=== PATIENT | male | born 1955 | race Caucasian/White ===

== ENCOUNTER 2020-08-08 13:10 | Outpatient (REF) | payer OTHER, SELFPAY ==
[2020-08-08 14:13] LABS: MANUAL DIFF FLAG NO
[2020-08-08 14:16] LABS: Glucose Urine UA NEG (NEG); Leukocyte Esterase Urine NEG (NEG); Nitrite Urine NEG (NEG); PH 5.5 (5.0-8.0); Specific Gravity - Urine >= 1.030 (1.005-1.025); Urine Blood NEG (NEG); Urine Ketones NEG (NEG); Urine Protein NEG (NEG-TRACE)
[2020-08-08 14:17] LABS: Appearance Urine CLEAR; Color Urine DARK YELLOW
[2020-08-08 14:19] LABS: Basophils Percent Auto 0.4 % (0-2); Eosinophils Absolute Auto 0.2 X10*3/uL (0.0-0.4); Eosinophils Percent Auto 2.7 % (0-4); Hemoglobin 15.5 g/dl (14.0-18.0); Imm Gran Pct Auto 1.4 % (0.0-0.4); Lymphocytes Absolute Auto 1.8 X10*3/uL (1.2-4.9); Lymphocytes Percent Auto 25.7 % (20-40); Mean Corpuscular Hemoglobin 30.2 pg (27.0-33.0); Mean Corpuscular Volume 91.6 fL (80-98); Monocytes Absolute Auto 0.7 X10*3/uL (0.1-1.2); Monocytes Percent Auto 9.9 % (2-11); Neutrophils Absolute Auto 4.2 X10*3/uL (2.0-8.3); Neutrophils Percent Auto 59.9 % (45-73); Platelet Count 217 X10*3/uL (160-400); Red Blood Count 5.13 X10*6/uL (4.60-5.80); Red Cell Distribution Width 13.8 % (11.0-16.0)
[2020-08-08 14:39] LABS: Alanine Aminotransferase 49 U/L (0-40); Albumin Level 4.3 g/dL (3.5-5.0); Alkaline Phosphatase 95 U/L (39-117); Anion Gap 13 (12-20); Aspartate Amino Transferase 20 U/L (5-37); Bilirubin Total 1.1 mg/dL (0.0-1.0); Blood Urea Nitrogen 18 mg/dL (9-16); Calcium 9.1 mg/dL (8.4-10.2); Carbon Dioxide 24 mmol/L (22-29); Chloride 107 mmol/L (96-108); Cholesterol 273 mg/dL; Estimated Glomerular Filt Rate > 60; Glucose Fasting 101 mg/dL (60-99); HDL Cholesterol 62 mg/dL; LDL Cholesterol Calculated 185 mg/dl; Potassium 4.1 mmol/L (3.3-5.1); Sodium 140 mmol/L (135-145); Total Protein 6.8 g/dL (6.5-8.0); Triglycerides 134 mg/dL
[2020-08-08 15:02] LABS: Prostate Specific Antigen Scr 4.31 ng/mL (<0.05-4.0)
== END 2020-08-08 13:11 | disposition home or self-care (01) ==
LOC: HO.LAB 13:10
PROVIDERS: PCP Internal Medicine; Visit Provider Internal Medicine
DX: Z12.5 Encounter for screening for malignant neoplasm of prostate (principal); K21.9 Gastro-esophageal reflux disease without esophagitis; E78.00 Pure hypercholesterolemia, unspecified; J44.9 Chronic obstructive pulmonary disease, unspecified; R63.5 Abnormal weight gain; Z87.891 Personal history of nicotine dependence
CPT/HCPCS: 36415; 80053; 80061; 81003; 84153; 85025

== ENCOUNTER 2020-09-03 15:32 | Outpatient (REF) | payer OTHER, SELFPAY ==
--- NOTE | ~2020-09-03 | CT_ITS ---
EXAMINATION: CT CHEST SCREENING CLINICAL INFORMATION: Nicotine dependence. COMPARISON: None. TECHNIQUE: Multidetector volumetric CT imaging of the chest is performed without contrast using low dose technique. Additional 2-D coronal and sagittal reformatted images and axial 3-D maximum intensity projection (MIP) images are generated on the CT workstation. This CT examination was performed using dose optimization techniques as appropriate, variously including the following: *Automated exposure control *Adjustment of mA and/or kV according to patient size (this includes techniques or standardized protocols for targeted exams where dose is matched to indication/reason for exam; i.e. extremities or head) *Use of iterative reconstruction technique DLP: 62 mGy-cm FINDINGS: LUNGS: The lungs are well expanded with thick parenchymal scarring visualized in left lower lobe and plate-like atelectasis right upper and right lower lobe. There are no pulmonary nodules, mass or consolidation. MEDIASTINUM: There are small shotty lymph nodes in the mediastinum. The thyroid lobes are symmetrical. The central trachea and the bronchi are widely patent. There are coronary artery calcifications. The heart size and the great vessels are normal caliber. No pericardial effusion seen. PLEURA: There is no pleural effusion. No pleural mass or thickening. AXILLA: No abnormal axillary lymph nodes seen. The chest wall is unremarkable. UPPER ABDOMEN: Visualized liver, spleen, pancreas and bilateral adrenal glands are unremarkable. OSSEOUS STRUCTURES: No lytic or sclerotic process seen. CT/CT lung screening IMPRESSION: No pulmonary nodule or mass. Thick parenchymal scarring bilateral lungs, as described above. No abnormal mediastinal or axillary lymphadenopathy. ASSESSMENT: Lung-RADS category 2, benign RECOMMENDATION: Low dose annual CT chest
== END 2020-09-03 15:33 | disposition home or self-care (01) ==
LOC: HO.CT 15:32
PROVIDERS: PCP Internal Medicine; Visit Provider Physician Assistant Medical
DX: Z12.2 Encounter for screening for malignant neoplasm of respiratory organs (principal); Z87.891 Personal history of nicotine dependence
CPT/HCPCS: 71271

== ENCOUNTER 2020-09-10 14:36 | Outpatient (REF) | payer OTHER, SELFPAY ==
[2020-09-10 16:01] LABS: PSA,Total (Free>4and<10) 2.74 ng/mL (0.00-4.00)
== END 2020-09-10 14:37 | disposition home or self-care (01) ==
LOC: HO.LAB 14:36
PROVIDERS: PCP Internal Medicine; Visit Provider Internal Medicine
DX: Z12.5 Encounter for screening for malignant neoplasm of prostate (principal); R97.20 Elevated prostate specific antigen [PSA]
CPT/HCPCS: 36415; 84153

== ENCOUNTER → 2020-10-31 13:54 | Outpatient (BNVA) | payer OTHER, SELFPAY | PROVIDERS: PCP Internal Medicine; Visit Provider Urology | DX: N40.1 Benign prostatic hyperplasia with lower urinary tract symptoms (principal); R97.20 Elevated prostate specific antigen [PSA] | CPT/HCPCS: 99202 ==

== ENCOUNTER 2021-04-15 13:34 | Outpatient (REF) | payer MEDICAID, SELFPAY ==
[2021-04-15 13:51] LABS: MANUAL DIFF FLAG NO
[2021-04-15 14:13] LABS: Basophils Percent Auto 0.4 % (0-2); Eosinophils Absolute Auto 0.1 X10*3/uL (0.0-0.4); Hemoglobin 15.8 g/dl (14.0-18.0); Imm Gran Abs Auto 0.08 X10*3/uL (0.00-0.03); Imm Gran Pct Auto 1.1 % (0.0-0.4); Lymphocytes Absolute Auto 1.9 X10*3/uL (1.2-4.9); Lymphocytes Percent Auto 25.3 % (20-40); Mean Corpuscular HGB Conc 32.2 g/dl (31.0-36.0); Mean Corpuscular Hemoglobin 29.8 pg (27.0-33.0); Mean Corpuscular Volume 92.3 fL (80.0-98.0); Mean Platelet Volume 11.2 fL (9.4-12.4); Monocytes Absolute Auto 0.8 X10*3/uL (0.1-1.2); Monocytes Percent Auto 10.9 % (2-11); Neutrophils Absolute Auto 4.5 x10*3/uL (2.0-8.3); Neutrophils Percent Auto 61.3 % (45-73); Platelet Count 229 X10*3/uL (160-400); Red Blood Count 5.31 X10*6/uL (4.60-5.80); Red Cell Distribution Width 13.9 % (11.0-16.0); White Blood Count 7.4 X10*3/uL (4.8-10.8)
[2021-04-15 14:41] LABS: Alanine Aminotransferase 23 U/L (0-40); Albumin Level 4.2 g/dL (3.5-5.0); Alkaline Phosphatase 92 U/L (39-117); Anion Gap 10 (12-20); Aspartate Amino Transferase 13 U/L (5-37); Bilirubin Total 1.4 mg/dL (0.0-1.0); Blood Urea Nitrogen 15 mg/dL (9-16); Calcium 9.3 mg/dL (8.4-10.2); Carbon Dioxide 26 mmol/L (22-29); Chloride 109 mmol/L (96-108); Cholesterol 242 mg/dL; Estimated Glomerular Filt Rate > 60; Glucose Fasting 102 mg/dL (60-99); HDL Cholesterol 45 mg/dL; LDL Cholesterol Calculated 166 mg/dl; Potassium 4.4 mmol/L (3.3-5.1); Sodium 141 mmol/L (135-145); Total Protein 6.8 g/dL (6.5-8.0); Triglycerides 158 mg/dL
[2021-04-15 14:57] LABS: PSA,Total (Free>4and<10) 2.92 ng/mL (0.00-4.00)
== END 2021-04-15 13:35 | disposition home or self-care (01) ==
LOC: HO.LAB 13:34
PROVIDERS: Absent Provider Urology; PCP Internal Medicine; Visit Provider Internal Medicine
DX: Z12.5 Encounter for screening for malignant neoplasm of prostate (principal); N40.1 Benign prostatic hyperplasia with lower urinary tract symptoms; N13.8 Other obstructive and reflux uropathy; R97.20 Elevated prostate specific antigen [PSA]; E78.00 Pure hypercholesterolemia, unspecified; J44.9 Chronic obstructive pulmonary disease, unspecified
CPT/HCPCS: 36415; 80053; 80061; 84153; 85025

== ENCOUNTER → 2021-05-07 14:33 | Outpatient (BNVA) | payer MEDICAID, SELFPAY | PROVIDERS: PCP Family Medicine; Visit Provider Urology ==

== ENCOUNTER 2022-01-06 15:50 | Outpatient (REF) | payer MEDICAID, SELFPAY ==
[2022-01-06 16:51] LABS: Influenza A PCR NEGATIVE (Negative); Influenza B PCR NEGATIVE (Negative); Resp Syncy Virus RNA Qual PCR NEGATIVE (Negative); SARS COV2 PCR INHOUSE POSITIVE (Negative)
== END 2022-01-06 15:51 | disposition home or self-care (01) ==
LOC: HO.LNP 15:50
PROVIDERS: Visit Provider Internal Medicine
DX: R05.9 Cough, unspecified (principal); R50.9 Fever, unspecified; J02.9 Acute pharyngitis, unspecified; Z20.822 Contact with and (suspected) exposure to COVID-19
CPT/HCPCS: 0241U

== ENCOUNTER 2022-04-10 16:34 | Outpatient (REF) | payer MEDICAID, SELFPAY ==
[2022-04-10 16:50] LABS: MANUAL DIFF FLAG NO
[2022-04-10 17:20] LABS: Basophils Percent Auto 0.3 % (0-2); Eosinophils Absolute Auto 0.1 X10*3/uL (0.0-0.4); Eosinophils Percent Auto 0.7 % (0-4); Hematocrit 47.4 % (42.0-52.0); Hemoglobin 15.8 g/dl (14.0-18.0); Imm Gran Abs Auto 0.09 X10*3/uL (0.00-0.03); Lymphocytes Percent Auto 21.5 % (20-40); Mean Corpuscular HGB Conc 33.3 g/dl (31.0-36.0); Mean Corpuscular Hemoglobin 30.8 pg (27.0-33.0); Mean Corpuscular Volume 92.4 fL (80.0-98.0); Mean Platelet Volume 10.9 fL (9.4-12.4); Monocytes Absolute Auto 0.8 X10*3/uL (0.1-1.2); Neutrophils Absolute Auto 6.1 x10*3/uL (2.0-8.3); Neutrophils Percent Auto 67.5 % (45-73); Platelet Count 240 X10*3/uL (160-400); Red Blood Count 5.13 X10*6/uL (4.60-5.80); Red Cell Distribution Width 13.9 % (11.0-16.0); White Blood Count 9.1 X10*3/uL (4.8-10.8)
[2022-04-10 18:00] LABS: Alanine Aminotransferase 24 U/L (0-40); Albumin Level 4.3 g/dL (3.5-5.0); Alkaline Phosphatase 99 U/L (39-117); Anion Gap 13 (12-20); Aspartate Amino Transferase 14 U/L (5-37); Bilirubin Total 0.8 mg/dL (0.0-1.0); Blood Urea Nitrogen 22 mg/dL (9-16); Calcium 9.4 mg/dL (8.4-10.2); Carbon Dioxide 24 mmol/L (22-29); Chloride 107 mmol/L (96-108); Cholesterol 230 mg/dL; Estimated Glomerular Filt Rate > 60; Glucose Random 102 mg/dL (60-115); HDL Cholesterol 47 mg/dL; LDL Cholesterol Calculated 158 mg/dl; Potassium 4.2 mmol/L (3.3-5.1); Sodium 140 mmol/L (135-145); Total Protein 6.8 g/dL (6.5-8.0); Triglycerides 125 mg/dL
[2022-04-10 18:15] LABS: Prostate Specific Antigen 3.58 ng/mL (<0.05-4.0)
== END 2022-04-10 16:35 | disposition home or self-care (01) ==
LOC: HO.LAB 16:34
PROVIDERS: PCP Internal Medicine; Visit Provider Internal Medicine
DX: Z12.5 Encounter for screening for malignant neoplasm of prostate (principal); E78.00 Pure hypercholesterolemia, unspecified; J44.9 Chronic obstructive pulmonary disease, unspecified; M54.2 Cervicalgia
CPT/HCPCS: 36415; 80053; 80061; 84153; 85025

== ENCOUNTER 2022-04-27 14:21 | Outpatient (REF) | payer MEDICARE, MEDICAID, SELFPAY ==
--- NOTE | ~2022-04-27 | MR_ITS ---
EXAMINATION: MR BRAIN WITHOUT CONTRAST CLINICAL INFORMATION: Tinnitus. Rule out auditory nerve lesion. COMPARISON: Head CTA April 01, 2017. TECHNIQUE: Multiplanar, multisequence imaging of the brain was performed without intravenous contrast. FINDINGS: There is no acute infarction, mass, hemorrhage, or extra-axial collection. The ventricles, sulci, and basilar cisterns are normal in size and configuration. The brain parenchyma signal is essentially normal. No cerebellopontine angle lesion is seen. There is no abnormal nodularity along the internal auditory canals. The inner ear structures demonstrate normal and symmetric fluid signal. The flow voids of the major intracranial arteries appear intact. The bones and extracranial soft tissues are unremarkable. MR/MR head/brain wo con IMPRESSION: No acute infarct, mass lesion, intracranial hemorrhage, or evidence of hydrocephalus. No evidence of retrocochlear lesion.
== END 2022-04-27 14:22 | disposition home or self-care (01) ==
LOC: HO.MRI 14:21
PROVIDERS: Visit Provider Internal Medicine
DX: H93.11 Tinnitus, right ear (principal)
CPT/HCPCS: 70551

== ENCOUNTER 2022-11-03 17:05 | Outpatient (REF) | payer MEDICARE, MEDICAID, SELFPAY ==
--- NOTE | ~2022-11-03 | US_ITS ---
EXAMINATION: US VENOUS ULTRASOUND WITH DOPPLER LOWER EXTREMITY, BILATERAL CLINICAL INFORMATION: Reason long plane I, edema bilateral lower extremities COMPARISON: None available. TECHNIQUE: Ultrasound of the deep veins is performed from the hip to the calf with compression sonography and color and pulse Doppler assessment. Spectral analysis with color-flow imaging is performed. FINDINGS: RIGHT: There is normal venous compression and respiratory variation and augmented flow. The visualized common femoral vein, superficial femoral vein, profunda femoral vein, popliteal vein, and the trifurcation region shows no evidence of deep venous thrombosis. There is no significant popliteal fossa cyst. LEFT: There is normal venous compression and respiratory variation and augmented flow. The visualized common femoral vein, superficial femoral vein, profunda femoral vein, popliteal vein, and the trifurcation region shows no evidence of deep venous thrombosis. There is no significant popliteal fossa cyst. If the patient's symptoms persist, followup ultrasound in 5 days 7 days might be of value to exclude proximal propagation from a non-visualized calf vein. US/US venous duplex LE BI IMPRESSION: No DVT demonstrated in the bilateral lower extremities
[2022-11-03 17:14] LABS: MANUAL DIFF FLAG NO
[2022-11-03 17:52] LABS: Basophils Percent Auto 0.4 % (0-2); Eosinophils Absolute Auto 0.2 X10*3/uL (0.0-0.4); Eosinophils Percent Auto 2.2 % (0-4); Hematocrit 44.4 % (42.0-52.0); Hemoglobin 14.9 g/dl (14.0-18.0); Imm Gran Pct Auto 1.2 % (0.0-0.4); Lymphocytes Percent Auto 24.3 % (20-40); Mean Corpuscular HGB Conc 33.6 g/dl (31.0-36.0); Mean Corpuscular Hemoglobin 31.7 pg (27.0-33.0); Mean Corpuscular Volume 94.5 fL (80.0-98.0); Mean Platelet Volume 11.2 fL (9.4-12.4); Monocytes Absolute Auto 0.8 X10*3/uL (0.1-1.2); Monocytes Percent Auto 10.3 % (2-11); Neutrophils Absolute Auto 4.9 x10*3/uL (2.0-8.3); Neutrophils Percent Auto 61.6 % (45-73); Platelet Count 183 X10*3/uL (160-400); Red Cell Distribution Width 14.3 % (11.0-16.0)
[2022-11-03 18:34] LABS: Alanine Aminotransferase 29 U/L (0-40); Alkaline Phosphatase 83 U/L (39-117); Anion Gap 12 (12-20); Aspartate Amino Transferase 18 U/L (5-37); Bilirubin Total 1.1 mg/dL (0.0-1.0); Blood Urea Nitrogen 16 mg/dL (9-16); C Reactive Protein 0.59 mg/dL (< or = 0.50); Calcium 9.3 mg/dL (8.4-10.2); Carbon Dioxide 27 mmol/L (22-29); Chloride 106 mmol/L (96-108); Estimated Glomerular Filt Rate > 60; Glucose Random 96 mg/dL (60-115); Potassium 4.2 mmol/L (3.3-5.1); Sodium 141 mmol/L (135-145); Total Protein 6.6 g/dL (6.5-8.0)
[2022-11-03 18:50] LABS: Free T4 (Free Thyroxine) 0.94 ng/dL (0.71-1.85); Thyroid Stimulating Hormone 5.45 uIU/mL (0.32-4.0)
[2022-11-03 19:16] LABS: D Dimer High Sensitivity 256 NG/ML
== END 2022-11-03 17:06 | disposition home or self-care (01) ==
LOC: HO.US 17:05
PROVIDERS: PCP Internal Medicine; Visit Provider Internal Medicine
DX: I82.403 Acute embolism and thrombosis of unspecified deep veins of lower extremity, bilateral (principal); R60.0 Localized edema; K21.9 Gastro-esophageal reflux disease without esophagitis
CPT/HCPCS: 36415; 80053; 84439; 84443; 85025; 85379; 86140; 93970

== ENCOUNTER 2023-04-12 10:59 | Outpatient (REF) | payer MEDICARE, MEDICAID, SELFPAY ==
[2023-04-12 11:09] LABS: MANUAL DIFF FLAG NO
[2023-04-12 11:37] LABS: Basophils Percent Auto 0.3 % (0-2); Eosinophils Absolute Auto 0.2 X10*3/uL (0.0-0.4); Eosinophils Percent Auto 2.3 % (0-4); Hematocrit 44.3 % (42.0-52.0); Hemoglobin 14.5 g/dl (14.0-18.0); Imm Gran Abs Auto 0.09 X10*3/uL (0.00-0.03); Imm Gran Pct Auto 1.3 % (0.0-0.4); Lymphocytes Absolute Auto 1.7 X10*3/uL (1.2-4.9); Lymphocytes Percent Auto 24.5 % (20-40); Mean Corpuscular HGB Conc 32.7 g/dl (31.0-36.0); Mean Corpuscular Hemoglobin 30.6 pg (27.0-33.0); Mean Corpuscular Volume 93.5 fL (80.0-98.0); Mean Platelet Volume 11.8 fL (9.4-12.4); Monocytes Absolute Auto 0.7 X10*3/uL (0.1-1.2); Neutrophils Absolute Auto 4.2 x10*3/uL (2.0-8.3); Neutrophils Percent Auto 61.6 % (45-73); Platelet Count 176 X10*3/uL (160-400); Red Blood Count 4.74 X10*6/uL (4.60-5.80); Red Cell Distribution Width 13.4 % (11.0-16.0); White Blood Count 6.8 X10*3/uL (4.8-10.8)
[2023-04-12 12:34] LABS: Anion Gap 11 (12-20); Blood Urea Nitrogen 18 mg/dL (9-16); Calcium 9.2 mg/dL (8.4-10.2); Carbon Dioxide 27 mmol/L (22-29); Chloride 108 mmol/L (96-108); Estimated Glomerular Filt Rate > 60; Glucose Random 99 mg/dL (60-115); Potassium 4.5 mmol/L (3.3-5.1); Sodium 141 mmol/L (135-145)
[2023-04-12 13:19] LABS: Free T4 (Free Thyroxine) 0.82 ng/dL (0.71-1.85); Thyroid Stimulating Hormone 5.09 uIU/mL (0.32-4.0)
[2023-04-13 11:34] LABS: Lyme Abs Screen <0.90 index
== END 2023-04-12 11:00 | disposition home or self-care (01) ==
LOC: HO.LAB 10:59
PROVIDERS: PCP Internal Medicine; Visit Provider Internal Medicine
DX: E03.9 Hypothyroidism, unspecified (principal); S60.812D Abrasion of left wrist, subsequent encounter
CPT/HCPCS: 36415; 80048; 84439; 84443; 85025; 86617; 86618

== ENCOUNTER 2023-07-06 15:56 | Outpatient (REF) | payer MEDICARE, MEDICAID, SELFPAY ==
--- NOTE | ~2023-07-06 | XR_ITS ---
EXAMINATION: XR CHEST CLINICAL INFORMATION: Patient states he has had a chest cold for a few weeks. Pneumonia, cough. COMPARISON: 03/12/2017 CT chest. TECHNIQUE: 2 views of the chest were obtained. FINDINGS: There is no gross pneumothorax. Lung volumes are low. Heart size within normal limits. Increased bibasilar patchy and streaky opacities are characteristic of atelectasis/scar, although an associated inflammatory/infectious process should also be considered in the appropriate clinical setting. Persistent left costophrenic angle blunting. Moderate multilevel degenerative changes in the thoracic spine. XR/XR chest 2V IMPRESSION: Increased bibasilar patchy and streaky opacities are characteristic of atelectasis/scar, although an associated inflammatory/infectious process should also be considered in the appropriate clinical setting.
== END 2023-07-06 15:57 | disposition home or self-care (01) ==
LOC: HO.XRAY 15:56
PROVIDERS: PCP Internal Medicine; Visit Provider Internal Medicine
DX: R05.9 Cough, unspecified (principal)
CPT/HCPCS: 71046

== ENCOUNTER 2023-08-16 14:52 | Outpatient (REF) | payer MEDICARE, MEDICAID, SELFPAY ==
--- NOTE | ~2023-08-16 | XR_ITS ---
EXAMINATION: XR CHEST CLINICAL INFORMATION: Status post pneumonia COMPARISON: Chest 03/12/2017, 07/06/2023 TECHNIQUE: 2 views of the chest were obtained. FINDINGS: The lungs are well expanded. There is increased patchy and streaky opacity on the left compared to the prior study. Linear opacities and focal consolidation at right lung base is slightly improved. No interstitial pulmonary edema or pneumothorax. Persistent left costophrenic angle blunting which can be seen with a small pleural effusion or pleural thickening; this is without significant change since 03/12/2017. The cardiomediastinal sweat is within normal limits. There are no acute osseous abnormalities.. XR/XR chest 2V IMPRESSION: 1. Interval increase in patchy and streaky opacity in the left lung. This may represent pneumonia in the appropriate clinical setting. 2. Right basilar atelectasis and/or pneumonia is slightly improved.
[2023-08-16 16:42] LABS: Free T4 (Free Thyroxine) 0.94 ng/dL (0.71-1.85); Thyroid Stimulating Hormone 3.93 uIU/mL (0.32-4.0)
== END 2023-08-16 14:53 | disposition home or self-care (01) ==
LOC: HO.LAB 14:52
PROVIDERS: PCP Internal Medicine; Visit Provider Internal Medicine
DX: E03.9 Hypothyroidism, unspecified (principal); Z87.01 Personal history of pneumonia (recurrent)
CPT/HCPCS: 36415; 71046; 84439; 84443

== ENCOUNTER 2023-12-10 12:56 | Outpatient (REF) | payer MEDICARE, MEDICAID, SELFPAY ==
[2023-12-10 13:45] LABS: Influenza A PCR NEGATIVE (Negative); Influenza B PCR NEGATIVE (Negative); Resp Syncy Virus RNA Qual PCR NEGATIVE (Negative); SARS COV2 PCR INHOUSE POSITIVE (Negative)
== END 2023-12-10 12:57 | disposition home or self-care (01) ==
LOC: HO.LNP 12:56
PROVIDERS: Visit Provider Internal Medicine
DX: R05.9 Cough, unspecified (principal); R09.81 Nasal congestion
CPT/HCPCS: 0241U

== ENCOUNTER → 2024-02-29 10:02 | Outpatient (REF) | payer MEDICARE, MEDICAID, SELFPAY ==
--- NOTE | 2024-02-29 10:04 | CA_ITS ---
Acquisition Time: 2024-02-29 10:51:27 Total Exercise Time: 00:02:05 Test Indications: chest pain Medications: Protocol: LUCAS Max HR: 112 BPM 73% of Pred: 152 BPM Max BP: 180/058 mmHG Max Work Load: 4.6 METS Exercise Stress Test with exercise 2 min 5 secs of Lucas Protocol, acheiving 73% MPHR, with reports of severe SOB, requesting to stop, no chest discomfort, with very frequent PACs and isolated PVCs, with normotensive response to exercise. Nondiagnostic EKG for ischemia due to suboptimal MPHR. In recovery, SOB resolved. Recommend Pharmacologic Nuclear Stress Test for further tetsing if needed. Test reviewed with Dr. Araujo. Test performed by Elida Davis NP and Rhett Mccain NP Referred By: Nura Gallagher Overread By: ELIDA DVAIS
--- OUTSIDE RECORDS SUMMARY | 2024-02-29 10:08 | XMS_ITS | Patient Health Record ---
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 Name Role Phone Nura Gallagher MD Primary Care Provider Karel Arango Unavailable [phone] ALLERGIES Allergen (clinical drug ingredient) Drug/Non Drug Allergy documented on EMR Reaction Allergy Type Onset Date Status Pollen POLLEN (uncoded) Unknown Allergy Act boyd MOLD (uncoded) Unknown Allergy Activ e DUST (uncoded) Unknown Allergy Activ e REASON FOR REFERRAL No Information MEDICATIONS Medication SIG (Take, Route, Frequency, Duration) Notes Start Date End Date Status Meloxicam Active Omeprazole Active buPROPion HCl Active cloNIDine Active ARIPiprazole Active IMMUNIZATIONS Vaccine Route Administration Date Status Comme nts Influenza Unknown 12/27/2019 Refused SOCIAL HISTORY Tobacco Use: Social History Observation Description Date Details (start date - stop date) Former Smoker NA - NA Sex Assigned At : Social History Observation Description Sex Assigned At Unknown Tobacco Use/Smoking Question Answer Notes Patient is a former smoker Alcohol Screen Question Answer Notes Did you have a drink containing alcohol in the p ast year? No Points 0 Interpretation Negative PROBLEMS Problem Type ICD Code Onset Dates Problem Status W/U Status Risk SNOMED Code Notes Problem Encounter for screening for malignant neoplasm of colon (Z12.11) Active confirmed Screening for malignant neoplasm of colon (370727917) Problem History of adenomatous polyp of colon (Z86.010) Active confirmed History of adenomatous polyp of colon (815263144) Problem GERD (gastroesophage al reflux disease) (K21.9) Active confirmed Gastroesophagea l reflux disease (755892440) PLAN OF TREATMENT Future Test Test Name Order Date COLONOSCOPY 04/28/2011 UPPER GI ENDOSCOPY 12/27/2019 COLONOSCOPY 12/27/2019 Insurance Providers Payer Name Payer Address Payer Phone Subscriber Number Group Number Insured Name Patient Relationship to Insured Coverage Start Date Coverage End Date [facility] [address] [place] [address] [phone] [id number] THERESE TREJO Self - patient is the insured MEDICAL (GENERAL) HISTORY Medical History History ICD Code GERD Depression Denies MT,DM,CVA,Lung disease,renal dise ase Syncope in 2010 with a negative w/u Screening colonoscopy in 06/2011-4 small tubular adenomas removed Surgical History Surgery Date(Month/Year) Appy Right arm surgery-broken arm Lung Surgery for infection with a chest tube
== END ==
LOC: HO.CARD 10:02
PROVIDERS: PCP Internal Medicine; Visit Provider Internal Medicine
DX: R07.89 Other chest pain (principal)
CPT/HCPCS: 93017

== ENCOUNTER → 2024-02-29 10:04 | Outpatient (BNV) | payer MEDICARE, MEDICAID, SELFPAY | PROVIDERS: PCP Internal Medicine; Visit Provider Nurse Practitioner Family | DX: R06.02 Shortness of breath (principal); I49.1 Atrial premature depolarization; I49.3 Ventricular premature depolarization | CPT/HCPCS: 93016; 93018 ==

== ENCOUNTER 2024-07-24 14:15 | Outpatient (AMB) | payer MEDICARE, MEDICAID, SELFPAY ==
--- NOTE | 2024-07-24 14:17 | MHC.PC.OV ---
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 Accompanied by: Self / Same As Patient Allergies mold Allergy (Mild, Verified 07/24/24 14:17) RUNNY NOSE HAYFEVER Allergy (Mild, Uncoded 07/24/24 14:17) RUNNY NOSE Tobacco use date assessed: 07/24/24 Fall risk assessment: 1 Fall in past year Last assessed Fall Risk: 07/24/24 Dental Screening Dental Screen Date: 07/24/24 Did you have a dental visit in the last 12 months?: Yes Did you have a dental problem in the last 6 months where you did not have access to dental care?: No Was dental information given to patient?: Patient has dentist HPI HPI Comments History of Present Illness Details 68 year old male with history of hypothyroidism, gerd, depression, and obesity presents to the office today for routine follow up and to establish care. He has no known history of hypertension but blood pressures are significantly elevated at 164/82 and 172/88. No headaches, vision changes, cp. He is overdue for colonoscopy. Previously following with Dr. Caballero for elevated PSA, but has not been seen since 2021. He was previously following with Dr. Matthews for lung cancer screenings. He is a former smoker. He is compliant with his medications. He is concerned about a rash on the extensor surfaces of the bilateral elbows. Denies any pruritus or pain. No weeping/purulent drainage. Have been present for years. He is also concerned about his weight. He feels he is eating too much bread. He tells me he used to be quite active but no longer is. He also tells me he has been getting short of breath- like he cannot get enough air in when he is sleeping. Denies CRAWFORD or SOB at rest. No orthopnea or PND. Does snore. PFSH Medical History Hypertension GERD (gastroesophageal reflux disease) Hypothyroidism Anxiety Mild acid reflux Depression External hemorrhoids with complication Other affections of shoulder region, not elsewhere classified Former smoker Surgical History History of colonoscopy (~07/06/11) History of surgery Family History (Updated 07/24/24 @ 14:26 by JOVITA Proctor) Father Skin cancer Heart problem Mother Heart problem Social History (Updated 07/24/24 @ 14:25 by JOVITA Proctor) Housing: House Alcohol intake: current Alcohol intake frequency: holidays/special occasions only Patient Tobacco Use Status: Former Tobacco user service: No 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 1. Little interest or pleasure in doing things: nearly every day 2. Feeling down, depressed, or hopeless: more than half the days 3. Trouble falling or staying asleep, or sleeping too much: nearly every day 4. Feeling tired or having little energy: nearly every day 5. Poor appetite or overeating: nearly every day 6. Feeling bad about yourself - or that you are a failure or have let yourself or your family down: not at all 7. Trouble concentrating on things, such as reading the newspaper or watching television: not at all 8. Moving or speaking so slowly that other people could have noticed. Or the opposite - being so fidgety or restless that you have been moving around a lot more than usual: not at all 9. Thoughts that you would be better off or of hurting yourself in some way: several days Total score: 15 Source: Developed by Drs. Karel Pruitt, Imelda Morales, Melo Pabon and colleagues, with an educational swapna from [employer]. Thrive Questionnaire Date Thrive assessed: 07/24/24 I am a: Patient What is your living situation today?: I have a steady place to live Within the past 12 months, did the food you bought not last and you didn't have the money to get more?: Never true Within the past 12 months, did you worry whether your food would run out before you got money to buy more?: Never true Do you have trouble paying for medicines?: No Do you have trouble getting transportation to medical appointments?: No Do you have trouble paying your heating and electricity bill?: No Do you have trouble taking care of your child, family member or friend?: No Do you have trouble with day-to-day activities such as bathing, preparing meals, shopping, managing finances, etc.?: No Are you currently unemployed and looking for a job?: No Are you interested in more education?: No Please select the resources that you would like help with: None THRIVE Score: 0 AUDIT C Alcohol Use Questionnaire (AUDIT-C) 1. How often do you have a drink containing alcohol?: Monthly or less Total Score: 1 SAYRA-7 AMB Questionnaire SAYRA-7 Date SAYRA - 7 assessed: 07/24/24 Feeling nervous, anxious, or on edge: 1 = Several days Not being able to stop or control worryin = Several days Worrying too much about different things: 1 = Several days Trouble relaxin = Several days Being so restless that it is hard to sit still: 0 = Not at all Becoming easily annoyed or irritable: 1 = Several days Feeling afraid as if something awful might happen: 0 = Not at all Total SAYRA-7 score (0-4 normal; 5-9 mild; 10-14 moderate; 15-21 severe): 5 Source: Developed by Drs. Karel Pruitt, Imelda Morales, Melo Pabon and colleagues, with an educational swapna from [employer]. Review of Systems Const All systems reviewed & are unremarkable except as noted in HPI and below Physical exam (Primary Care) Vital Signs: Last Vital Signs Temp 97.4 F 07/24/24 14:27 Pulse 84 07/24/24 14:27 Resp 16 07/24/24 14:27 BP 172/88 H 07/24/24 14:41 Pulse Ox 96 07/24/24 14:27 Oxygen Delivery Method Room Air 07/24/24 14:27 BMI result Body Mass Index 36.9 Tobacco/Smoking Status: Tobacco use Status Tobacco use date assessed 07/24/24 07/24/24 14:29 Patient Tobacco Use Status Former Tobacco user 07/24/24 14:29 PHQ-9: PHQ-9 Score PHQ-9: Total score 15 07/24/24 14:29 Thrive Assessment: Date of Thrive Assessment Date Thrive assessed 07/24/24 07/24/24 14:29 Const Other: Constitutional - Awake and Alert, No apparent distress Eyes - PERRL Cardiovascular - S1S2, RRR, No edema Respiratory - Normal lung expansion, Normal respiratory effort, No respiratory distress, CTA bilaterally Gastrointestinal - obese abdomen Extremities - no calf tenderness bilaterally, no swelling Skin - Warm/Dry Neurological - Alert & oriented x3 Coding Level of Care Code New Pt Level 4 (31331) Complex EM visit Add On G2211 Diagnoses Hypothyroidism E03.9 GERD (gastroesophageal reflux disease) K21.9 Elevated PSA R97.20 Hypertension I10 Obesity hypoventilation syndrome E66.2 Atopic dermatitis L20.9 Assessment & Plan Assessment & Plan (1) Hypothyroidism: Code(s): E03.9 - Hypothyroidism, unspecified Category: Medical Plan: TSH w/ reflex free T4 ordered. Continue levothyroxine, dose to be adjusted pending result (2) GERD (gastroesophageal reflux disease): Code(s): K21.9 - Gastro-esophageal reflux disease without esophagitis Category: Medical Plan: Controlled. Continue omeprazole and avoid triggering food items. (3) Elevated PSA: Code(s): R97.20 - Elevated prostate specific antigen [PSA] Category: Medical Plan: PSA ordered. Follow up with urology if this remains elevated (4) Hypertension: Code(s): I10 - Essential (primary) hypertension Category: Medical Plan: New onset. BP significantly elevated even on recheck. Asymptomatic. Initiate amlodipine 10mg daily. Counseled on side effects. Follow low sodium diet and recommend weight loss. Follow up in 3 weeks for BP check. (5) Obesity hypoventilation syndrome: Code(s): E66.2 - Morbid (severe) obesity with alveolar hypoventilation Category: Medical Plan: Symptoms of SOB at night likely related to obesity hypoventilation syndrome. However, will check for TAPAN and sleep study is ordered. He will also follow up for lung cancer screenings as ordered. Weight loss efforts encouraged. (6) Atopic dermatitis: Code(s): L20.9 - Atopic dermatitis, unspecified Category: Medical Plan: Rash on bilateral elbows likely r/t eczema. Medium strength triamcinolone cream ordered to use twice daily as needed for rash. Will reevaluate at follow up visit in 3 weeks. Plan Follow up in 3 weeks for BP check. Labs to be completed following visit today. Declines screening colonoscopy or cologuard. Referred for lung cancer screening and sleep study. Weight loss efforts encouraged. Orders: Orders Complete Blood Count Auto Diff Today E03.9 - Hypothyroidism, unspecified, F32.9 - Major depressive disorder, single episode, unspecified, K21.9 - Gastro-esophageal reflux disease without esophagitis, R97.20 - Elevated prostate specific antigen [PSA] Hemoglobin A1c Today E03.9 - Hypothyroidism, unspecified, F32.9 - Major depressive disorder, single episode, unspecified, K21.9 - Gastro-esophageal reflux disease without esophagitis, R97.20 - Elevated prostate specific antigen [PSA] Liver Panel Today E03.9 - Hypothyroidism, unspecified, F32.9 - Major depressive disorder, single episode, unspecified, K21.9 - Gastro-esophageal reflux disease without esophagitis, R97.20 - Elevated prostate specific antigen [PSA] Prostate Specific Antigen Today E03.9 - Hypothyroidism, unspecified, F32.9 - Major depressive disorder, single episode, unspecified, K21.9 - Gastro-esophageal reflux disease without esophagitis, R97.20 - Elevated prostate specific antigen [PSA] Basic Metabolic Panel Today E03.9 - Hypothyroidism, unspecified, F32.9 - Major depressive disorder, single episode, unspecified, K21.9 - Gastro-esophageal reflux disease without esophagitis, R97.20 - Elevated prostate specific antigen [PSA] Lipid Panel Today E03.9 - Hypothyroidism, unspecified, F32.9 - Major depressive disorder, single episode, unspecified, K21.9 - Gastro-esophageal reflux disease without esophagitis, R97.20 - Elevated prostate specific antigen [PSA] TSH reflex Free T4 Today E03.9 - Hypothyroidism, unspecified, F32.9 - Major depressive disorder, single episode, unspecified, K21.9 - Gastro-esophageal reflux disease without esophagitis, R97.20 - Elevated prostate specific antigen [PSA] RT home sleep study Today E66.2 - Morbid (severe) obesity with alveolar hypoventilation, E66.812 - Obesity, class 2 Referrals Pulmonology Referral Z12.2 - Encounter for screening for malignant neoplasm of respiratory organs Medications: New amlodipine 10 mg PO DAILY 90 tabs 1RF triamcinolone acetonide 0.1% 1 appl topical BID PRN 30 grams 0RF rash
[2024-07-24 14:27] VITALS: BP 164/82; PULSE 84; RESP 16; TEMP 36.3; O2SAT 96; BMI 36.9
--- OUTSIDE RECORDS SUMMARY | 2024-07-24 14:28 | XMS_ITS | Clinical Summary ---
Author Organization [employer] Address [address] [place] [address] Care Team Providers Care Facilities Director Name Role Phone Unavailable Primary Care Provider Unavailabl e Allergies Active Allergy Reactions Criticality Noted Date Comments Gramineae Pollens Unknown 08/23/2023 [place] Oil 11/02/2023 Medications omeprazole (PriLOSEC) [address] capsule Take 20 mg by mouth Once per day. 4 Active meloxicam (Mobic) 15 MG tablet TAKE 1 TABLET BY MOUTH EVERY DAY WITH FOOD 4 Active levothyroxine (Synthroid, Levoxyl) 25 MCG tablet Take 25 mcg by mouth Once per day. 4 Active Sod Fluoride-Potassi um Nitrate 1.1-5 % pasteIndications :Dental caries [place] teeth for 2 minutes, morning and night. Spit, do not rinse. Do not eat or drink anything for 30 minutes following brushing. 112 g 3 4 Active acetaminophen (Tylenol) 500 MG tabletIndication s:History of tooth extraction, unspecified edentulism class Take 1 tablet (500 mg) by mouth every 6 (six) hours if needed for mild pain for up to 20 doses. 20 tablet 4 Active FLUoxetine (PROzac) 60 MG tablet Take 1 tablet by mouth in the morning. Active diphenhydrAMINE (BENADryl) 25 MG capsule Take 1 capsule by mouth every 6 (six) hours if needed. Active ibuprofen 600 MG tablet Take 1 tablet by mouth 3 times daily. Active LORazepam (Ativan) 0.5 MG tablet 1 tablet as needed Orally every 6 hrs, or 2 at bedtime 6 Active predniSONE (Deltasone) 20 MG tablet Take 20 mg by mouth Once per day. 4 Active Ventolin HFA 108 (90 Base) MCG/ACT inhaler INHALE 2 PUFFS BY MOUTH EVERY 4 TO 6 HOURS 5 Active mupirocin (Bactroban) 2 % ointment APPLY TO BIOPSY SITE ON NECK TWICE DAILY 5 Active Active Problems Problem Noted Date Diagnosed Date Dental calculus 11/02/2023 Dental plaque 11/02/2023 Gastroesophageal reflux disease 08/30/2023 History of adenomatous polyp of colon 08/30/2023 Screening for malignant neoplasm of colon 2023 Encounters Date Type Department Care Team Description 05/05/2024 1:00 PM EST Office Visit [facility] [address] [place] [address] Renee Guzman from Last 3 Months Social History Tobacco Use Types Packs/Day Years Used Date Smoking Tobacco: Never Smokeless Tobacco: Never Tobacco Cessation:Counseling Given: Not Answered Alcohol Use Standard Drinks/Week Comments Yes 0 (1 standard drink = 0.6 oz pur e alcohol) social Sex and Gender Information Value Date Recorded Sex Assigned at Male 08/16/2023 10:13 AM EDT Legal Sex Male 10:09 AM EDT Gender Identity Male 08/16/2023 10:13 AM EDT Sexual Orientation Choose not to disclose 2023 10:13 AM EDT Last Filed Vital Signs Vital Sign Reading Time Taken Comments Blood Pressure 130/78 05/05/2024 1:04 PM EST Pulse 60 11/02/2023 12:57 PM EDT Temperature - - Respiratory Rate - - Oxygen Saturation - - Inhaled Oxygen Concentration - - Weight - - Height - - Body Mass Index - - Plan of Treatment Health Maintenance Due Date Last Done Comments CT Colonography 1955 Colonoscopy 1955 Colorectal Cancer Screening 1955 Depression Screening 1955 FIT DNA/Cologuard 1955 FIT 1955 FOBT 1955 Lipid Panel 1955 SDOH Screening 1955 Sigmoidoscopy 1955 Alcohol/Substance Use Screening 1967 Hepatitis C Screening 12/14/1973 Pneumococcal Vaccine: 50+ Years (1 of 1 - PCV) 12/14/2005 DTaP/Tdap/Td Vaccines (1 - Tdap) 01/30/2013 01/29/2013 COVID-19 Vaccine ( season) 2023 09/14/2022, 03/04/2022, 07/17/2020, Additional history exists Influenza Vaccine (#1) 2023 Dental Oral Exam 03/01/2024 08/30/2023 Dental X-Ray: Bitewings 08/30/2024 08/30/2023, 08/22 Dental Prophylaxis 11/03/2024 05/05/2024, 11/02/2023 Tobacco Screening 05/05/2025 05/05/2024 Dental X-Ray: Full Mouth 08/30/2026 08/30/2023 RSV Patients and Patients Aged 60 years or older (1 - 1-dose 75+ series) 12/14/2030 Zoster Vaccines Completed 08/11/2023, 10/2023, 07/06/2016 HIB Vaccines Aged Out No longer eligi ble based on patient's age to complete this topic HPV Vaccines Aged Out No longer eligi ble based on patient's age to complete this topic Hepatitis A Vaccines Aged Out No long er eligible based on patient's age to complete this topic Hepatitis B Vaccines Aged Out No long er eligible based on patient's age to complete this topic IPV Vaccines Aged Out No longer eligi ble based on patient's age to complete this topic Meningococcal Vaccine Aged Out No chrissy hilary eligible based on patient's age to complete this topic RSV under 20 months Aged Out No longe r eligible based on patient's age to complete this topic Rotavirus Vaccines Aged Out No longer eligible based on patient's age to complete this topic Procedures Procedure Name Priority Date/Time Associated Diagnosis Comments ORAL HYGIENE INSTRUCTIONS Routine 2024 1:00 PM EST CASE PRESENTATION, DETAILED AND EXTENSIVE TREATMENT PLANNING Routine 05/05/2024 1:00 PM EST PROPHYLAXIS - ADULT Routine 05/05/2024 1 :00 PM EST INTRAORAL - COMPLETE SERIES OF RADIOGRAPHIC IMAGES Routine 08/30/2023 1:00 PM EDT Dental caries Gingivitis Necrosis of dental pulp COMPREHENSIVE ORAL EVALUATION - NEW OR ESTABLISHED PATIENT Routine 08/30/2023 1:00 PM EDT Dental caries Gingivitis Necrosis of dental pulp from Last 3 Months or Most Recently Relevant to Health Maintenance Insurance DENTAL - HSN FULL (MEDICAID)
--- OUTSIDE RECORDS SUMMARY | 2024-07-24 14:28 | XMS_ITS | Patient Health Record ---
Author Organization [facility] Address [address] [place] [address] Care Team Providers Care Financial Counselor Name Role Phone Nura Gallagher MD Primary Care Provider Karel Arango Unavailable [phone] Allergies Allergen (clinical drug ingredient) Drug/Non Drug Allergy documented on EMR Reaction Allergy Type Onset Date Status Pollen POLLEN (uncoded) Unknown Allergy Act boyd MOLD (uncoded) Unknown Allergy Activ e DUST (uncoded) Unknown Allergy Activ e Reason For Referral No Information Medications Medication SIG (Take, Route, Frequency, Duration) Notes Start Date End Date Status Meloxicam Active Omeprazole Active buPROPion HCl Active cloNIDine Active ARIPiprazole Active Immunizations Vaccine Route Administration Date Status Comme nts Influenza Unknown 12/27/2019 Refused Social History Tobacco Use: Social History Observation Description Date Details (start date - stop date) Former Smoker NA - NA Tobacco Use/Smoking Question Answer Notes Patient is a former smoker Alcohol Screen Question Answer Notes Did you have a drink containing alcohol in the p ast year? No Points 0 Interpretation Negative Section Notes: Smokes and uses occ. alcohol Nonsmoker and uses occ. alco hol Problems Problem Type SNOMED Code ICD Code Onset Dates Problem Status W/U Status Risk Notes Problem Screening for malignant neoplasm of colon (745027401) Encounter for screening for malignant neoplasm of colon (Z12.11) Active confirmed Problem History of adenomatous polyp of colon (433672264) History of adenomatous polyp of colon (Z86.010) Active confirmed Problem Gastroesophageal reflux disease (922727313) GERD (gastroesophag eal reflux disease) (K21.9) Active confirmed Plan Of Treatment Future Test Test Name Order Date COLONOSCOPY 04/28/2011 UPPER GI ENDOSCOPY 12/27/2019 COLONOSCOPY 12/27/2019 Insurance Providers Payer Name Payer Address Payer Phone Subscriber Number Group Number Insured Name Patient Relationship to Insured Coverage Start Date Coverage End Date [facility] [address] [place] [address] [id number] THERESE TREJO Self - patient is the insured Medical (General) History Medical History History ICD Code GERD Depression Denies ID,DM,CVA,Lung disease,renal dise ase Syncope in 2010 with a negative w/u Screening colonoscopy in 06/2011-4 small tubular adenomas removed Surgical History Surgery Date(Month/Year) Appy Right arm surgery-broken arm Lung Surgery for infection with a chest tube
[2024-07-24 14:41] VITALS: BP 172/88
== END 2024-07-24 14:51 | disposition home or self-care (01) ==
LOC: HO.HMCHD 14:15
PROVIDERS: PCP Internal Medicine; Visit Provider Physician Assistant
DX: E03.9 Hypothyroidism, unspecified (principal); K21.9 Gastro-esophageal reflux disease without esophagitis; R97.20 Elevated prostate specific antigen [PSA]; I10 Essential (primary) hypertension; E66.2 Morbid (severe) obesity with alveolar hypoventilation; L20.9 Atopic dermatitis, unspecified

== ENCOUNTER 2024-07-24 14:15 | Outpatient (REF) | payer MEDICARE, MEDICAID, SELFPAY ==
--- OUTSIDE RECORDS SUMMARY | 2024-07-24 14:59 | XMS_ITS | Clinical Summary ---
Author Organization [employer] Address [address] [place] [address] Care Team Providers Care Lemon Picker Name Role Phone Unavailable Primary Care Provider Unavailabl e Allergies Active Allergy Reactions Criticality Noted Date Comments Gramineae Pollens Unknown 08/23/2023 [place] Oil 11/02/2023 Medications omeprazole (PriLOSEC) 20 [address] DR capsule Take 20 mg by mouth Once per day. 4 Active meloxicam (Mobic) 15 MG tablet TAKE 1 TABLET BY MOUTH EVERY DAY WITH FOOD 4 Active levothyroxine (Synthroid, Levoxyl) 25 MCG tablet Take 25 mcg by mouth Once per day. 4 Active Sod Fluoride-Potassi um Nitrate 1.1-5 % pasteIndications :Dental caries [place] teeth for 2 minutes, morning and night. [...] Description 05/05/2024 1:00 PM EST Office Visit [facility] [address] [place] [address] Renee Guzman from Last 3 Months Social [...]
[2024-07-24 15:12] LABS: MANUAL DIFF FLAG NO
[2024-07-24 15:46] LABS: Basophils Percent Auto 0.4 % (0-2); Eosinophils Absolute Auto 0.1 X10*3/uL (0.0-0.4); Eosinophils Percent Auto 1.5 % (0-4); Hematocrit 43.8 % (42.0-52.0); Hemoglobin 14.9 g/dl (14.0-18.0); Imm Gran Abs Auto 0.12 X10*3/uL (0.00-0.03); Imm Gran Pct Auto 1.5 % (0.0-0.4); Lymphocytes Absolute Auto 1.8 X10*3/uL (1.2-4.9); Mean Corpuscular Hemoglobin 30.9 pg (27.0-33.0); Mean Corpuscular Volume 90.9 fL (80.0-98.0); Mean Platelet Volume 11.1 fL (9.4-12.4); Monocytes Absolute Auto 0.7 X10*3/uL (0.1-1.2); Monocytes Percent Auto 8.8 % (2-11); Neutrophils Absolute Auto 5.2 x10*3/uL (2.0-8.3); Neutrophils Percent Auto 65.8 % (45-73); Platelet Count 176 X10*3/uL (160-400); Red Blood Count 4.82 X10*6/uL (4.60-5.80); Red Cell Distribution Width 13.6 % (11.0-16.0); White Blood Count 7.9 X10*3/uL (4.8-10.8)
[2024-07-24 15:53] LABS: Estimated Average Glucose 120 mg/dL; Hemoglobin A1c % 5.8 % (<6.0); Total Hemoglobin (HGBA1C) 3862.5731 umol/L
[2024-07-24 16:21] LABS: Alanine Aminotransferase 60 U/L (0-40); Albumin Level 4.2 g/dL (3.5-5.0); Anion Gap 14 (12-20); Aspartate Amino Transferase 38 U/L (5-37); Bilirubin Direct 0.2 mg/dL (0.0-0.5); Bilirubin Total 0.5 mg/dL (0.0-1.0); Blood Urea Nitrogen 23 mg/dL (9-16); Calcium 9.1 mg/dL (8.4-10.2); Carbon Dioxide 22 mmol/L (22-29); Chloride 108 mmol/L (96-108); Cholesterol 210 mg/dL (<200); Estimated Glomerular Filt Rate > 60; Glucose Random 104 mg/dL (60-115); HDL Cholesterol 55 mg/dL (>40); LDL Cholesterol Calculated 135 mg/dL (<100); Potassium 4.1 mmol/L (3.3-5.1); Sodium 140 mmol/L (135-145); Total Protein 6.8 g/dL (6.5-8.0); Triglycerides 101 mg/dL (<150)
[2024-07-24 16:44] LABS: Alkaline Phosphatase 102 U/L (39-117); TSH reflex Free T4 4.74 uIU/mL (0.32-4.0)
[2024-07-24 18:13] LABS: Free T4 (Free Thyroxine) 0.99 ng/dL (0.71-1.85)
== END 2024-07-24 14:16 | disposition home or self-care (01) ==
LOC: HO.LAB 14:15
PROVIDERS: Visit Provider Physician Assistant
DX: E03.9 Hypothyroidism, unspecified (principal); K21.9 Gastro-esophageal reflux disease without esophagitis; F32.9 Major depressive disorder, single episode, unspecified; R97.20 Elevated prostate specific antigen [PSA]; Z12.5 Encounter for screening for malignant neoplasm of prostate; L20.9 Atopic dermatitis, unspecified; E66.2 Morbid (severe) obesity with alveolar hypoventilation; I10 Essential (primary) hypertension; Z13.1 Encounter for screening for diabetes mellitus
CPT/HCPCS: 36415; 80048; 80061; 80076; 83036; 84153; 84439; 84443; 85025; 99202

== ENCOUNTER 2024-08-14 14:33 | Outpatient (AMB) | payer MEDICARE, MEDICAID, SELFPAY ==
--- NOTE | 2024-08-14 14:35 | A.OFFPC_ITS ---
Vital Signs 08/14/24 14:41 Height 5 ft 8 in Weight 109.316 kg BMI 36.6 BP 132/64 Respiration 16 Pulse 91 Pulse Source Pulse Oximeter Temp 97.1 F Temp Source Temporal Artery Scan Pulse Oximetry (%) 94 Oxygen Delivery Method Room Air Intake Visit Reasons: 3 Week F/U [facility] Att[facility] Required: No Accompanied by: Self / Same As Patient Allergies mold Allergy (Mild, Verified 08/14/24 14:36) RUNNY NOSE HAYFEVER Allergy (Mild, Uncoded 08/14/24 14:36) RUNNY NOSE Medication List - Last Reconciled 08/14/24 by SUNDEEP Carrillo albuterol sulfate 90 mcg/actuation (Ventolin HFA) 2 puffs inhalation Q6H PRN amlodipine 10 mg PO DAILY aripiprazole 10 mg PO DAILY atorvastatin 10 mg PO DAILY levothyroxine 25 mcg PO DAILY meloxicam 15 mg PO DAILY omeprazole 20 mg PO DAILY triamcinolone acetonide 0.1% 1 appl topical BID PRN Tobacco use date assessed: 07/24/24 Dental Screening Dental Screen Date: 07/24/24 HPI HPI Comments History of Present Illness Details 68-year-old male with history of hyperte nsion, hypothyroidism, hyperlipidemia who is severely obese with BMI > 36 presents to the office today for follow-up. He was seen in the office 2 weeks ago with significantly elevated blood pressures up to 172/88. He was started on amlodipine 10 mg daily which he has b een taking as prescribed and denies any adverse effects. He does not check his blood pressures at home. He does report he is concerned about his breathing at night which was discussed at last visit. He was referred for home sleep study but was contacted and states this was delayed. He does state he is working on weight loss given there is likely a component of obesity hypoventilation syndrome. He tells me he has been using his albuterol inhaler as a preventative measure for the symptoms at night. He does not carry diagnosis of asthma or COPD. Denies any wheezing, other shortness of breath, chest pain. No cough. He denies any lightheadedness, palpitations. We did also discuss lab results which show an elevated PSA of 5.90. Was previously following with Urology with last visit in 2021. AST and ALT are also elevated at 38 and 60 respectively. Hemoglobin A1c elevated at 5.8%. TSH 4.74 with normal free T4. ROS: General: No fevers, malaise, unintentional weight loss HEENT: No blurred vision, diplopia Cardiovascular: No chest pain, palpitations, or leg edema Respiratory: No shortness of breath, wheezing, cough Neuro: No headaches, weakness, paresthesias Skin: No rashes or lesions EXAM: Constitutional - Awake and Alert, No apparent distress Eyes - PERRLA, EOMI Cardiovascular - S1S2, regularly irregular rhythm, No edema Respiratory - Normal lung expansion, Normal respiratory effort, No respiratory distress, CTA bilaterally Extremities - no calf tenderness bilaterally, no swelling Skin - Warm/Dry Neurological - Alert & oriented x3 Psychological - Appropriate affect PFSH Medical History Prediabetes Hypertension GERD (gastroesophageal reflux disease) Hypothyroidism Anxiety Mild acid reflux Depression External hemorrhoids with complication Other affections of shoulder region, not elsewhere classified Former smoker Surgical History History of colonoscopy (~07/06/11) History of surgery Family History (Updated 07/24/24 @ 14:26 by JOVITA Proctor) Father Skin cancer Heart problem Mother Heart problem Social History (Updated 07/24/24 @ 14:25 by JOVITA Proctor) Housing: House Alcohol intake: current Alcohol intake frequency: holidays/special occasions only Patient Tobacco Use Status: Former Tobacco user service: No 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 Karel Pruitt, Imelda Morales, Melo Pabon and colleagues, with an educational swapna from [employer]. Physical exam (Primary Care) Vital Signs: Last Vital Signs Temp 97.1 F 08/14/24 14:41 Pulse 91 08/14/24 14:41 Resp 16 08/14/24 14:41 Pulse Ox 94 08/14/24 14:41 Oxygen Delivery Method Room Air 08/14/24 14:41 BMI result Body Mass Index 36.6 Tobacco/Smoking Status: Tobacco use Status Tobacco use date assessed 07/24/24 08/14/24 14:38 Patient Tobacco Use Status Former Tobacco user 08/14/24 14:38 Thrive Assessment: Date of Thrive Assessment Date Thrive assessed 07/24/24 08/14/24 14:38 Coding Level of Care Code Est Pt Level 4 (34274) Complex EM visit Add On G2211 Diagnoses Hypertension I10 Hypothyroidism E03.9 Elevated PSA R97.20 Irregular heart rhythm I49.9 Assessment & Plan Assessment & Plan (1) Hypertension: Code(s): I10 - Essential (primary) hypertension Category: Medical Plan: Controlled with blood pressure 132/64. He will continue amlodipine 10 mg daily. Low-sodium diet advised. (2) Hypothyroidism: Code(s): E03.9 - Hypothyroidism, unspecified Category: Medical Plan: TSH slightly elevated at 4.74 with normal free T4. Continue levothyroxine 25 mcg daily as prescribed. (3) Elevated PSA: Code(s): R97.20 - Elevated prostate specific antigen [PSA] Category: Medical Plan: Elevated at 5.90. Urology referral placed. (4) Irregular heart rhythm: Code(s): I49.9 - Cardiac arrhythmia, unspecified Category: Medical Plan: EKG performed in the office shows sinus arrhythmia-PACs with right 76. No ischemic changes. Referred for Holter monitor. Labs reviewed. Electrolytes and thyroid function within normal limits. Plan Follow up in 6 months, labs to be completed prior to visit. Continue medications as prescribed. Holter monitor ordered Orders: Orders ECG holter monitor 48 hour Today I49.9 - Cardiac arrhythmia, unspecified Basic Metabolic Panel 6 Months E03.9 - Hypothyroidism, unspecified, I10 - Essential (primary) hypertension, R73.03 - Prediabetes, R74.01 - Elevation of levels of liver transaminase levels AMB EKG-In Office Today I49.9 - Cardiac arrhythmia, unspecified Hemoglobin A1c 6 Months E03.9 - Hypothyroidism, unspecified, I10 - Essential (primary) hypertension, R73.03 - Prediabetes, R74.01 - Elevation of levels of liver transaminase levels TSH reflex Free T4 6 Months E03.9 - Hypothyroidism, unspecified, I10 - Essential (primary) hypertension, R73.03 - Prediabetes, R74.01 - Elevation of levels of liver transaminase levels Lipid Panel 6 Months E03.9 - Hypothyroidism, unspecified, I10 - Essential (primary) hypertension, R73.03 - Prediabetes, R74.01 - Elevation of levels of liver transaminase levels Liver Panel 6 Months E03.9 - Hypothyroidism, unspecified, I10 - Essential (primary) hypertension, R73.03 - Prediabetes, R74.01 - Elevation of levels of liver transaminase levels Referrals Urology Referral R97.20 - Elevated prostate specific antigen [PSA] Medications: New meloxicam 15 mg (2 x 7.5 mg) PO DAILY 180 tabs 0RF
[2024-08-14 14:41] VITALS: BP 132/64; PULSE 91; RESP 16; TEMP 36.2; O2SAT 94; BMI 36.6
--- OUTSIDE RECORDS SUMMARY | 2024-08-14 15:50 | XMS_ITS | Clinical Summary ---
Author Organization [employer] Address [address] [place] [address] Care Team Providers Care Side Seam Envelope Machine Operator Name Role Phone Unavailable Primary Care Provider Unavailabl e Allergies Active Allergy Reactions Criticality Noted Date Comments Gramineae Pollens Unknown 08/23/2023 [place] Oil 11/02/2023 Medications omeprazole (PriLOSEC) 20 MG DR capsule Take 20 mg by mouth Once per day. 4 Active meloxicam (Mobic) 15 MG tablet TAKE 1 TABLET BY MOUTH EVERY DAY WITH FOOD 4 Active levothyroxine (Synthroid, Levoxyl) 25 MCG tablet Take 25 mcg by mouth Once per day. 4 Active Sod Fluoride-Potassi um Nitrate 1.1-5 % pasteIndications :Dental caries [place] teeth for 2 minutes, morning and night. [...] Encounters Date Type Department Care Team Description 08/08/2024 1:00 PM EDT Office Visit [facility] [address] [place] [address] Chang Larson, GRETCHEN Loss of retention of dental crown (Primary Dx) from Last 3 Months Social History Tobacco [...] 2023 09/14/2022, 03/04/2022, 07/17/2020, Additional history exists Dental Oral Exam 03/01/2024 08/30/2023 Dental Prophylaxis 11/03/2024 05/05/2024, 11/02/2023 Influenza Vaccine (Season Ended) 2024 Tobacco Screening 08/08/2025 08/08/2024 Dental X-Ray: Bitewings 08/09/2025 08/09/19, 08/30/2023, 08/23/2023 Dental X-Ray: Full Mouth 08/30/2026 08/30/2023 RSV [...] patient's age to complete this topic Meningococcal B Vaccine Aged Out No l onger eligible based on patient's age to complete [...] Procedure Name Priority Date/Time Associated Diagnosis Comments CASE PRESENTATION, DETAILED AND EXTENSIVE TREATMENT PLANNING Routine 08/08/2024 1:00 PM EDT Loss of retention of dental crown BITEWING - SINGLE RADIOGRAPHIC IMAGE Routine 08/08/2024 1:00 PM EDT Loss of retention of dental crown LIMITED ORAL EVALUATION - PROBLEM FOCUSED Routine 08/08/2024 1:00 PM EDT Loss of retention of dental crown PROPHYLAXIS - ADULT Routine 05/05/2024 1 :00 [...]
== END 2024-08-14 15:17 | disposition home or self-care (01) ==
LOC: HO.HMCHD 14:34
PROVIDERS: PCP Internal Medicine; Visit Provider Physician Assistant
DX: I10 Essential (primary) hypertension (principal); E03.9 Hypothyroidism, unspecified; R97.20 Elevated prostate specific antigen [PSA]; I49.9 Cardiac arrhythmia, unspecified

== ENCOUNTER → 2024-08-14 14:33 | Outpatient (BNVA) | payer MEDICARE, MEDICAID, SELFPAY | PROVIDERS: PCP Internal Medicine; Visit Provider Physician Assistant | DX: I10 Essential (primary) hypertension (principal); I49.9 Cardiac arrhythmia, unspecified; E03.9 Hypothyroidism, unspecified; E78.5 Hyperlipidemia, unspecified; R97.20 Elevated prostate specific antigen [PSA]; R73.03 Prediabetes; R74.01 Elevation of levels of liver transaminase levels | CPT/HCPCS: 99212 ==

== ENCOUNTER → 2024-08-22 11:10 | Outpatient (REF) | payer MEDICARE, MEDICAID, SELFPAY ==
--- OUTSIDE RECORDS SUMMARY | 2024-08-22 13:22 | XMS_ITS | Clinical Summary ---
Author Organization [employer] Address [address] [facility] [address] [place] [address] Care Team Providers Care Railroad Brakeman Name Role Phone Unavailable Primary Care Provider Unavailabl e Allergies Active Allergy Reactions Criticality Noted Date Comments Gramineae Pollens Unknown 08/23/2023 [place] Oil 11/02/2023 Medications omeprazole (PriLOSEC) 20 MG DR capsule Take 20 mg by mouth Once per day. 4 Active meloxicam (Mobic) 15 MG tablet TAKE 1 TABLET BY MOUTH EVERY DAY WITH FOOD 4 Active levothyroxine (Synthroid, Levoxyl) 25 MCG tablet Take 25 mcg by mouth Once per day. 4 Active Sod Fluoride-Potassi um Nitrate 1.1-5 % pasteIndications :Dental caries [place] teeth for 2 minutes, morning and night. [...] Description 08/08/2024 1:00 PM EDT Office Visit [facility] [address] [place] [address] Chang Larson, GRETCHEN Loss of retention of [...]
== END ==
LOC: HO.CARD 11:10
PROVIDERS: PCP Physician Assistant; Visit Provider Physician Assistant
DX: I49.9 Cardiac arrhythmia, unspecified (principal); I49.8 Other specified cardiac arrhythmias
CPT/HCPCS: 93225

== ENCOUNTER → 2024-08-22 11:15 | Outpatient (BNV) | payer MEDICARE, MEDICAID, SELFPAY | PROVIDERS: PCP Physician Assistant; Visit Provider Internal Medicine | DX: I47.10 Supraventricular tachycardia, unspecified (principal) | CPT/HCPCS: 93227 ==

== ENCOUNTER → 2024-09-22 14:04 | Outpatient (REF) | payer MEDICARE, MEDICAID, SELFPAY ==
--- NOTE | 2024-09-22 14:08 | CA_ITS ---
Transthoracic Echocardiogram Patient (Last, First, Middle): Mihir Castillo, Gender: Male Date of : 1955 Age: 68 Procedure Date: 09/22/2024 Procedure Type: Transthoracic Echocardiogram Location: OP Height: 175. cm Weight: 108.86 kg BSA: 2.23 m2 Heart Rate: 65 bpm BP: 165 / 70 mmHg Office Automation Technician: HAMILTON Referring MD: Carol URBANO Symptoms: I49.1 - Atrial premature depolarization Study Quality: Adequate ECG Rhythm: Sinus Conclusions: - Normal left ventricular size, thickness, systolic function, and wall motion. The visually estimated ejection fraction is between 60-65%. - Elevated filling pressures. - Normal right ventricular cavity size and systolic function. - There is moderate aortic valve regurgitation. - There is moderate dilatation of the sinuses of Valsalva measuring 4.80 cm and mild dilatation of the ascending aorta measuring 4.10 cm. Findings Left Ventricle Normal left ventricular size, thickness, systolic function, and wall motion. The visually estimated ejection fraction is between 60-65%. Abnormal diastolic function is noted. Spectral Doppler is indicative of a pseudonormal filling pattern. Elevated filling pressures. Right Ventricle Normal right ventricular cavity size and systolic function. Atria The left atrium is likely dilated. The right atrium is normal in size. Aortic Valve The aortic valve was not well visualized. There is no aortic valve stenosis. There is moderate aortic valve regurgitation. Mitral Valve The mitral valve appears normal. There is no mitral valve regurgitation. There is no mitral valve stenosis. Pulmonic Valve The pulmonic valve is likely normal. Tricuspid Valve Normal tricuspid valve structure. There is trace tricuspid valve regurgitation. Tricuspid regurgitation envelope is inadequate for calculation of right ventricular systolic pressure. Normal right atrial pressure. Great Vessels There is moderate dilatation of the sinuses of Valsalva measuring 4.80 cm and mild dilatation of the ascending aorta measuring 4.10 cm. The visualized portions of the pulmonary artery and branches are normal. Venous The inferior vena cava is normal in size and collapses greater than 50% with inspiration. Pericardium/Pleural Prominent epicardial adipose tissue noted. There is no evidence of pericardial effusion. Prior Study Comparison Changes noted compared to prior study dated: 10/22/2010. Moderate dilation of aortic root, moderate eccentric AR. Measurements 2D Linear Measurements IVSd: 0.95 0.6-0.9/0.6-1.0 cm LVIDd: 4.34 3.9-5.3/4.2-5.9 cm LVIDd Index: 1.95 2.4-3.2/2.2-3.1 cm/m2 LVIDs: 2.99 2.0-3.6 cm LVPWd: 1.01 0.7-1.1 cm LA Diam: 3.60 2.7-3.8/3.0-4.0 cm LAIDs Index: 1.61 1.5-2.3 cm/m2 LV Mass: 175.03 67-162/88-224 g LV Mass Index: 78.49 43-95/49-115 g/m2 LVOT Diam: 2.50 3.0+(-)1.3 cm 2D Systolic Function EF 4C: 65.00 >55% EF 2C: 59.50 >55% EF BiP: 61.20 >55% Mitral Valve MV Pk E: 1.45 MV PK A: 0.45 MV Decel Time: 97.00 E/A: 3.20 E'Lateral: 9.57 E'Medial: 5.55 E/E' Med: 26.10 E/E' Lat: 15.20 PHT: 28.00 MVA PHT: 7.86 Decel [place]: 14.96 Aortic Valve AoV Pk Octavio: 1.10 AoV Mn Octavio: 0.82 AoV VTI: 0.22 AoV Pk Grad: 5.00 Aov Mn Grad: 3.00 WILFRID Cont.VTI: 5.60 LVOT LVOT Pk Octavio: 1.34 LVOT Mn Octavio: 0.85 LVOT VTI: 0.25 LVOT Pk Grad: 7.00 LVOT Mn Grad: 3.00 LVOT Diam: 2.50 LVOT Area: 4.91 Diastolic Function MV Pk E: 1.45 MV Pk A: 0.45 E/A: 3.20 E'Medial: 5.55 E/E' Med: 26.10 E' Laterial: 9.57 E/E' Lat: 15.20 Right Ventricle TAPSE (mm): 23.30 TVS' Octavio: 13.80 Tricuspid Valve RA Press: 3.00 Great Vessels Aorta Sinus of Valsalva: 4.80 2.0-3.5 cm Ao Asc: 4.10 2.1-3.4 cm Ao Arch: 3.10 Pulmonary Valve PV Pk Octavio: 1.05 Peak PV Grad: 4.00 Updated in Other Vendor System with Status of Final Ander Tran MD electronically signed on 09/24/2024 11:30:14 PM with status of Final
--- OUTSIDE RECORDS SUMMARY | 2024-09-22 14:08 | XMS_ITS | Patient Health Record ---
Author Organization [facility] Address [address] [place] [address] Care Team Providers Care Accounting Coordinator Name Role Phone Nura Gallagher MD Primary Care Provider Karel Arango Unavailable [phone] Allergies Allergen (clinical drug ingredient) Drug/Non Drug [...] Problem Status W/U Status Risk Notes Problem Encounter for screening for malignant neoplasm of colon (Z12.11) Active confirmed Problem History of adenomatous polyp of colon (863881095) History of adenomatous polyp of colon (Z86.010) Active confirmed Problem Gastroesophageal reflux disease (128183757) GERD (gastroesophag eal reflux disease) (K21.9) Active confirmed Plan Of Treatment Future Test Test Name Order Date COLONOSCOPY 04/28/2011 UPPER GI ENDOSCOPY 12/27/2019 COLONOSCOPY 12/27/2019 Insurance Providers Payer Name Payer Address Payer Phone Subscriber Number Group Number Insured Name Patient Relationship to Insured Coverage Start Date Coverage End Date [facility] [address] [place] [address] [phone] [id number] THERESE TREJO Self - patient is the insured Medical (General) History Medical History History ICD Code GERD Depression Denies [place],DM,CVA,Lung disease,renal dise ase Syncope in 2010 with a negative w/u Screening colonoscopy in 06/2011-4 small tubular adenomas removed Surgical History Surgery Date(Month/Year) Appy Right arm surgery-broken arm Lung Surgery for infection with a chest tube
--- OUTSIDE RECORDS SUMMARY | 2024-09-22 14:08 | XMS_ITS | Clinical Summary ---
Author Organization [employer] Address [address] [facility] 7t [place] [address] Care Team Providers Care Ear Pull Machine Operator Name Role Phone Unavailable Primary Care Provider Unavailabl e Allergies Active Allergy Reactions Criticality Noted Date Comments Gramineae Pollens Unknown 08/23/2023 [place] Oil 11/02/2023 Medications omeprazole (PriLOSEC) [address] capsule Take 20 mg by mouth Once per day. 4 Active meloxicam (Mobic) 15 MG tablet TAKE 1 TABLET BY MOUTH EVERY DAY WITH FOOD 4 Active levothyroxine (Synthroid, Levoxyl) 25 MCG tablet Take 25 mcg by mouth Once per day. 4 Active Sod Fluoride-Potassi um Nitrate 1.1-5 % pasteIndications :Dental caries [place] teeth for 2 minutes, morning and night. [...] Description 08/08/2024 1:00 PM EDT Office Visit [facility] [address] [place] [address] Chang Larson, GRETCHEN Loss of retention of [...] Dental Prophylaxis 11/03/2024 05/05/2024, 11/02/2023 Influenza Vaccine (#1) 2024 Tobacco Screening 08/08/2025 08/08/2024 Dental X-Ray: [...]
== END ==
LOC: HO.CARD 14:04
PROVIDERS: PCP Physician Assistant; Visit Provider Physician Assistant
DX: I49.1 Atrial premature depolarization (principal)
CPT/HCPCS: 93306

== ENCOUNTER → 2024-09-22 14:08 | Outpatient (BNV) | payer MEDICARE, MEDICAID, SELFPAY | PROVIDERS: PCP Physician Assistant; Visit Provider Internal Medicine Cardiovascular Disease | DX: I35.1 Nonrheumatic aortic (valve) insufficiency (principal); I51.89 Other ill-defined heart diseases | CPT/HCPCS: 93306 ==

== ENCOUNTER 2024-09-26 16:06 | Outpatient (AMB) | payer MEDICARE, MEDICAID, SELFPAY ==
--- NOTE | 2024-09-26 16:06 | A.OFFPC_ITS ---
Vital Signs 09/26/24 16:10 Weight 107.955 kg BP 138/72 Blood Pressure Location Lt brachial Position Sitting Respiration 18 Pulse 93 Pulse Source Pulse Oximeter Temp 96.9 F Temp Source Temporal Artery Scan Pulse Oximetry (%) 95 Oxygen Delivery Method Room Air Intake Visit Reasons: BP Appt Ip Litigation Associate Required: No Accompanied by: Self / Same As Patient Allergies mold Allergy (Mild, Verified 09/26/24 16:06) RUNNY NOSE HAYFEVER Allergy (Mild, Uncoded 08/14/24 14:36) RUNNY NOSE Medication List - Last Reconciled 09/26/24 by SUNDEEP Carrillo albuterol sulfate 90 mcg/actuation (Ventolin HFA) 2 puffs inhalation Q6H PRN aripiprazole 10 mg PO DAILY atorvastatin 10 mg PO DAILY fluticasone furoate-vilanterol 100-25 mcg/dose (Breo Ellipta) 1 inh inhalation DAILY levothyroxine 25 mcg PO DAILY losartan 50 mg PO DAILY meloxicam 15 mg (2 x 7.5 mg) PO DAILY omeprazole 20 mg PO DAILY triamcinolone acetonide 0.5% 1 appl topical BID PRN Tobacco use date assessed: 07/24/24 Dental Screening Dental Screen Date: 07/24/24 HPI HPI Comments History of Present Illness Details 68-year-old male with history of hyperte nsion, hypothyroidism, hyperlipidemia who is severely obese with BMI > 36 presents to the office today for follow-up on elevated blood pressures. He was seen in the office 2 weeks ago and was started on losartan 50 mg daily after amlodipine had been discontinued due to leg edema. Blood pressure in the office today is 138/72. He has been working on some weight loss and has lost about 4 lb since last visit. He does report that he is occasionally short of breath with wheezing and requires the use of albuterol inhaler 5 times weekly. He is not on any maintenance inhalers. Along with these symptoms has also had some lightheadedness and chest tightness. No chest pressure, last felt several days ago. And prior visit, was also found to have high burden of PACs on holter monitor at 10%. No other arrhythmia noted. No fevers, chills, cough. ROS: General: No fevers, malaise, unintentional weight loss HEENT: No blurred vision, diplopia. No sore throat, nasal congestion, rhinorrhea, sinus pain, ear pain Cardiovascular: No chest pain, palpitations, or leg edema Respiratory: see hpi MSK: No myalgia, back pain Neuro: No headaches, weakness, paresthesias Skin: No rashes or lesions EXAM: Constitutional - Awake and Alert, No apparent distress Eyes - PERRL Cardiovascular - S1S2, RRR, No edema. No PACs auscultated on exam Respiratory - Normal lung expansion, Normal respiratory effort, No respiratory distress, CTA bilaterally Extremities - no calf tenderness bilaterally, no swelling Skin - Warm/Dry Neurological - Alert & oriented x3 Psychological - Appropriate affect [facility] Medical History (Updated 09/27/24 @ 13:07 by SUNDEEP Carrillo) PAC (premature atrial contraction) Personal history of nicotine dependence Prediabetes Hypertension GERD (gastroesophageal reflux disease) Hypothyroidism Anxiety Mild acid reflux Depression External hemorrhoids with complication Other affections of shoulder region, not elsewhere classified Surgical History History of colonoscopy (~07/06/11) History of surgery Family History (Updated 07/24/24 @ 14:26 by JOVITA Proctor) Father Skin cancer Heart problem Mother Heart problem Social History (Updated 07/24/24 @ 14:25 by JOVITA Proctor) Housing: House Alcohol intake: current Alcohol intake frequency: holidays/special occasions only Patient Tobacco Use Status: Former Tobacco user e-Cigarette/Vaping Use: Former Use service: No 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 Karel Pruitt, Imelda Morales, Melo Pabon and colleagues, with an educational swapna from [employer] Physical exam (Primary Care) Vital Signs: Last Vital Signs Temp 96.9 F 09/26/24 16:10 Pulse 93 09/26/24 16:10 Resp 18 09/26/24 16:10 BP 138/72 09/26/24 16:10 Pulse Ox 95 09/26/24 16:10 Oxygen Delivery Method Room Air 07/15/25 16:10 Tobacco/Smoking Status: Tobacco use Status Tobacco use date assessed 07/24/24 09/26/24 16:08 Patient Tobacco Use Status Former Tobacco user 09/26/24 16:08 e-Cigarette/Vaping Use Former Use 09/26/24 16:14 Thrive Assessment: Date of Thrive Assessment Date Thrive assessed 07/24/24 09/26/24 16:08 Coding Level of Care Code Est Pt Level 4 (79466) Diagnoses Asthma J45.909 PAC (premature atrial contraction) I49.1 Hypertension I10 Personal history of nicotine dependence Z87.891 Assessment & Plan Assessment & Plan (1) Asthma: Code(s): J45.909 - Unspecified asthma, uncomplicated Category: Medical Plan: Initiate Advair for maintenance. Likely also has component of COPD. Will refer for pulmonary function test. Can continue using albuterol inhaler as needed. He does have upcoming appointment with lung cancer screening/CT of the lungs given personal smoking history. Also discussed that there maybe a component of obesity hypoventilation syndrome that could be contributing to the air hunger that he experiences. Continue with weight loss efforts (2) PAC (premature atrial contraction): Comment: 10% burden on holter, rare symptoms Code(s): I49.1 - Atrial premature depolarization Category: Medical Plan: Not currently symptomatic. Echo reviewed. We will continue monitoring for now. Discussed with Cardiology, should patient become symptomatic, we will initiate beta-dottie. (3) Hypertension: Code(s): I10 - Essential (primary) hypertension Category: Medical Plan: Controlled. Continue losartan 50 mg daily (4) Personal history of nicotine dependence: Comment: (former smoker >30pyh - Quit ~ 2020) Code(s): Z87.891 - Personal history of nicotine dependence Category: Medical Plan: As above Plan Follow-up in the office in 6 months, sooner if needed Medications: New fluticasone propion-salmeterol 100-50 mcg/dose 1 inh inhalation BID 180 ea 1RF Patient Instructions: [email or web address]
[2024-09-26 16:10] VITALS: BP 138/72; PULSE 93; RESP 18; TEMP 36.1; O2SAT 95
--- OUTSIDE RECORDS SUMMARY | 2024-09-26 16:43 | XMS_ITS | Clinical Summary ---
Author Organization [employer] Address [address] [facility] [address] [place] [address] Care Team Providers Care Cell Tower Climber Name Role Phone Unavailable Primary Care Provider Unavailabl e Allergies Active Allergy Reactions Criticality Noted Date Comments Gramineae Pollens Unknown 08/23/2023 [place] Oil 11/02/2023 Medications omeprazole (PriLOSEC) 20 [address] capsule Take 20 mg by mouth Once per day. 4 Active meloxicam (Mobic) 15 MG tablet TAKE 1 TABLET BY MOUTH EVERY DAY WITH FOOD 4 Active levothyroxine (Synthroid, Levoxyl) 25 MCG tablet Take 25 mcg by mouth Once per day. 4 Active Sod Fluoride-Potassi um Nitrate 1.1-5 % pasteIndications :Dental caries [place] teeth for 2 minutes, morning and night. [...] Description 08/08/2024 1:00 PM EDT Office Visit [facility]ULT [facility] [address] [place] [address] Chang Larson, GRETCHEN Loss of retention of [...]
--- OUTSIDE RECORDS SUMMARY | 2024-09-26 16:43 | XMS_ITS | Patient Health Record ---
Author Organization [facility] Address [address] [place] [address] Care Team Providers Care Job Boss Name Role Phone Aileen (RETIRED) Nura ERWIN Primary Care Provide Karel Nari [phone] Allergies Allergen (clinical drug ingredient) Drug/Non Drug [...] Problem Screening for malignant neoplasm of colon (076070887) Encounter for screening for malignant neoplasm of colon (Z12.11) Active confirmed Problem History of adenomatous polyp of colon (537515737) History of adenomatous polyp of colon (Z86.010) Active confirmed Problem Gastroesophageal reflux disease (674652995) GERD (gastroesophag eal reflux disease) (K21.9) Active confirmed Plan Of Treatment Future Test Test Name Order Date COLONOSCOPY 04/28/2011 UPPER GI ENDOSCOPY 12/27/2019 COLONOSCOPY 12/27/2019 Insurance Providers Payer Name Payer Address Payer Phone Subscriber Number Group Number Insured Name Patient Relationship to Insured Coverage Start Date Coverage End Date [facility] [address] [place] [address] [id number] THERESE TREJO Self - patient is the insured Medical (General) History Medical History History ICD Code GERD Depression Denies [place],DM,CVA,Lung disease,renal dise ase Syncope in 2010 with a negative w/u Screening colonoscopy in 06/2011-4 small tubular adenomas removed Surgical History Surgery Date(Month/Year) Appy Right arm surgery-broken arm Lung Surgery for infection with a chest tube
== END 2024-09-26 16:37 | disposition home or self-care (01) ==
LOC: HO.HMCHD 16:06
PROVIDERS: PCP Physician Assistant; Visit Provider Physician Assistant
DX: J45.909 Unspecified asthma, uncomplicated (principal); I49.1 Atrial premature depolarization; I10 Essential (primary) hypertension; Z87.891 Personal history of nicotine dependence

== ENCOUNTER → 2024-09-26 16:06 | Outpatient (BNVA) | payer MEDICARE, MEDICAID, SELFPAY | PROVIDERS: PCP Physician Assistant; Visit Provider Physician Assistant | DX: J45.909 Unspecified asthma, uncomplicated (principal); I49.1 Atrial premature depolarization; I10 Essential (primary) hypertension; Z87.891 Personal history of nicotine dependence; Z79.899 Other long term (current) drug therapy | CPT/HCPCS: 99212 ==

== ENCOUNTER → 2024-10-03 16:04 | Outpatient (REF) | payer MEDICARE, MEDICAID, SELFPAY ==
--- OUTSIDE RECORDS SUMMARY | 2024-10-03 16:37 | XMS_ITS | Clinical Summary ---
Author Organization [employer] Address [address] [facility] 7t [place] [address] Care Team Providers Care Application Helper Name Role Phone Unavailable Primary Care Provider Unavailabl e Allergies Active Allergy Reactions Criticality Noted Date Comments Gramineae Pollens Unknown 08/23/2023 [place] Oil 11/02/2023 Medications omeprazole (PriLOSEC) 20 MG DR capsule Take 20 mg by mouth Once per day. 4 Active meloxicam (Mobic) 15 MG tablet TAKE 1 TABLET BY MOUTH EVERY DAY WITH FOOD 4 Active levothyroxine (Synthroid, Levoxyl) 25 MCG tablet Take 25 mcg by mouth Once per day. 4 Active Sod Fluoride-Potassi um Nitrate 1.1-5 % pasteIndications :Dental caries [place] teeth for 2 minutes, morning and night. [...] Description 08/08/2024 1:00 PM EDT Office Visit [facility] ADULT D[facility] [address] [place] [address] Chang Larson, GRETCHEN Loss of retention of [...] topic Meningococcal Vaccine Aged Out No chrissy hilray eligible based on patient's age to complete [...]
--- OUTSIDE RECORDS SUMMARY | 2024-10-03 16:37 | XMS_ITS | Patient Health Record ---
Author Organization [facility] Address [address] [place] [address] Care Team Providers Care Art Gallery Internship Name Role Phone Aileen (RETIRED) Nura ERWIN Primary Care Provide Karel Nair [phone] Allergies Allergen (clinical drug ingredient) Drug/Non Drug [...] Problem Screening for malignant neoplasm of colon (880217649) Encounter for screening for malignant neoplasm of colon (Z12.11) Active confirmed Problem History of adenomatous polyp of colon (764810758) History of adenomatous polyp of colon (Z86.010) Active confirmed Problem Gastroesophageal reflux disease (286720314) GERD (gastroesophag eal reflux disease) (K21.9) Active confirmed Plan Of Treatment Future Test Test Name Order Date COLONOSCOPY 04/28/2011 UPPER GI ENDOSCOPY 12/27/2019 COLONOSCOPY 12/27/2019 Insurance Providers Payer Name Payer Address Payer Phone Subscriber Number Group Number Insured Name Patient Relationship to Insured Coverage Start Date Coverage End Date [facility] [address] [place] [address] [id number] THERESE TREJO Self - patient is the insured Medical (General) History Medical History History ICD Code GERD Depression Denies [place],DM,CVA,Lung disease,renal dise ase Syncope in 2010 with a negative w/u Screening colonoscopy in 06/2011-4 small tubular adenomas removed Surgical History Surgery Date(Month/Year) Appy Right arm surgery-broken arm Lung Surgery for infection with a chest tube
--- OUTSIDE RECORDS SUMMARY | 2024-10-03 16:37 | XMS_ITS | Clinical Summary ---
Author Organization [facility] Address [address] [address] Phone Care Team Providers Care Extrusion Die Template Maker Name Role Phone Nura Gallagher MD Primary Care Provider Allergies Active Allergy Reactions Criticality Noted Date Comments Grass Pollen-Red Top, Standard Unknown 08/22 Medications ibuprofen (ADVIL,MOTRIN) 600 MG tablet Take 1 tablet by mouth 3 (three) times a day. Active diphenhydrAMINE (BENADRYL) 25 mg capsule Take 1 capsule by mouth every 6 (six) hours as needed. Active albuterol (VENTOLIN HFA) 90 mcg/actuation inhaler Inhale 2 puffs into the lungs every 4 (four) hours as needed. Active omeprazole (PRILOSEC) 20 MG capsule Take 2 capsules by mouth daily. Active FLUoxetine (PROZAC) 60 mg Tab Take 1 tablet by mouth every morning. Active LORazepam (ATIVAN) 0.5 MG tablet 1 tablet as needed Orally every 6 hrs, or 2 at bedtime 6 Active CETIRIZINE HCL (ZYRTEC ORAL) Active BUPROPION HCL ORAL Active cholecalciferol , vitamin D3, (VITAMIN D3) 1,000 unit capsule Take 1,000 Units by mouth daily. Active levothyroxine (SYNTHROID,LEVO THROID) 25 MCG tablet Take 25 mcg by mouth. 4 Active sodium fluoride-potass ium nitrate (PREVIDENT 5000 SENSITIVE) 1.1-5 % Pste [place] teeth for 2 minutes, morning and night. Spit, do not rinse. Do not eat or drink anything for 30 minutes following brushing. 4 Active meloxicam (MOBIC) 15 MG tablet Take 15 mg by mouth daily. with food 4 Active Immunizations Immunization Administration Dates Next Due Td (adult) 5 Lf Tetanus Toxoid, PF, Adsorbed Zoster live 07/06/2016 Zoster recombinant 08/11/2023,04/22/2023 Social History Tobacco Use Types Packs/Day Years Used Date Smoking Tobacco: Former Cigarettes Smokeless Tobacco: Never Education Answer Date Recorded Are you interested in more education? Not on sarmad e 09/15/2023 Are you concerned about learning? Not on file 09/15/2023 No 09/15/2023 No 09/15/2023 Digital Access Answer Date Recorded No 09/15/2023 No 09/15/2023 Reliable internet access at home? Not on file 09/15/2023 Device with a working camera? Not on file Sex and Gender Information Value Date Recorded Sex Assigned at Not on file Legal Sex Male 9:54 PM EDT Gender Identity Not on file Sexual Orientation Not on file Last Filed Vital Signs Vital Sign Reading Time Taken Comments Blood Pressure 164/88 09/15/2023 2:37 PM EDT Pulse 96 09/15/2023 2:37 PM EDT Temperature 36.6 C (97.8 F) 09/15/2023 2:37 PM EDT Respiratory Rate 18 09/15/2023 2:37 PM EDT Oxygen Saturation 96% 09/15/2023 2:37 PM EDT Inhaled Oxygen Concentration - - Weight 86.1 kg (189 lb 12.8 oz) 016 11:39 AM EDT Height 168 cm (5' 6.14 ) 09/26/2015 11: 39 AM EDT Body Mass Index 30.5 09/26/2015 11:39 AM EDT Plan of Treatment Health Maintenance Due Date Last Done Comments LIPID PANEL 1955 TSH LEVEL 1955 DEPRESSION SCREENING 1967 SMOKING Hx and SMOKELESS TOBACCO SCREENING 12/14/1968 HEPATITIS C SCREENING 12/14/1973 COLOGUARD 12/14/2000 COLONOSCOPY 12/14/2000 COLORECTAL CANCER SCREENING 12/14/2000 FIT TEST 12/14/2000 FOBT 12/14/2000 SIGMOIDOSCOPY 12/14/2000 VIRTUAL COLONOSCOPY 12/14/2000 PNEUMOCOCCAL VACCINES (50+ years) (1 of 1 - PCV) 12/14/2005 ABDOMINAL AORTIC ANEURYSM (AAA) SCREENING 12/14/2020 Adult Td,Tdap Booster 01/29/2023 01/29/2013 COVID-19 VACCINE ( season) 2023 09/14/2022, 03/04/2022, 07/17/2020, Additional history exists RSV VACCINE (1 - 1-dose 75+ series) 12/14/2030 ZOSTER VACCINES Completed 08/11/2023, 02/0 10/2023, 07/06/2016 HEPATITIS A VACCINES Aged Out No long er eligible based on patient's age to complete this topic HIB VACCINES Aged Out No longer eligi ble based on patient's age to complete this topic MENINGOCOCCAL VACCINES (ACWY) Aged Out No longer eligible based on patient's age to complete this topic MENINGOCOCCAL VACCINES (B) Aged Out N o longer eligible based on patient's age to complete this topic Medical Devices Not on file Insurance [employer] [facility] FULL MEDICARE PART A & B [employer] NET FULL MEDICARE PART A & B NET FULL MEDICARE PART A & B HEALTH SAFETY NET FULL MEDICARE PART A & B HEALTH SAFETY NET FULL MEDICARE PART A & B HEALTH SAFETY NET FULL MEDICARE PART A & B Care Teams Extrusion Die Template Maker Relationship Specialty Start Date End Date Nura Gallagher MD [address] [place] [address] [place] [address] PCP - General 03/18/17 Additional Source Comments The information contained in this document represents components of the legal health record. It is not the complete legal health record.[facility]
== END ==
LOC: HO.SL 16:04
PROVIDERS: PCP Physician Assistant; Visit Provider Physician Assistant
DX: G47.33 Obstructive sleep apnea (adult) (pediatric) (principal); E66.812 Obesity, class 2; G47.30 Sleep apnea, unspecified; Z53.8 Procedure and treatment not carried out for other reasons
CPT/HCPCS: 95806

== ENCOUNTER 2024-10-13 14:53 | Outpatient (AMB) | payer MEDICARE, MEDICAID, SELFPAY ==
--- OUTSIDE RECORDS SUMMARY | 2024-10-13 14:55 | XMS_ITS | Clinical Summary ---
Author Organization [employer] Address [address] [facility] [address] [place] [address] Care Team Providers Care Manager Council Name Role Phone Unavailable Primary Care Provider Unavailabl e Allergies Active Allergy Reactions Criticality Noted Date Comments Gramineae Pollens Unknown 08/23/2023 [place] Oil 11/02/2023 Medications omeprazole (PriLOSEC) [address] capsule Take 20 mg by mouth Once per day. 4 Active meloxicam (Mobic) 15 MG tablet TAKE 1 TABLET BY MOUTH EVERY DAY WITH FOOD 4 Active levothyroxine (Synthroid, Levoxyl) 25 MCG tablet Take 25 mcg by mouth Once per day. 4 Active Sod Fluoride-Potassi um Nitrate 1.1-5 % pasteIndications :Dental caries [place] teeth for 2 minutes, morning and night. [...] 1:00 PM EDT Office Visit [facility] [address] [place] [address] Chang Larson, GRETCHEN Loss of retention of [...]
--- OUTSIDE RECORDS SUMMARY | 2024-10-13 14:56 | XMS_ITS | Patient Health Record ---
Author Organization [facility] Address [address] [place] [address] Care Team Providers Care Mapping Supervisor Name Role Phone Aileen (RETIRED) Nura ERWIN Primary Care Provide Karel Nair [phone] Allergies Allergen (clinical drug ingredient) Drug/Non Drug [...] Problem Screening for malignant neoplasm of colon (547873345) Encounter for screening for malignant neoplasm of colon (Z12.11) Active confirmed Problem History of adenomatous polyp of colon (112386819) History of adenomatous polyp of colon (Z86.010) Active confirmed Problem Gastroesophageal reflux disease (742048188) GERD (gastroesophag eal reflux disease) (K21.9) Active confirmed Plan Of Treatment Future Test Test Name Order Date COLONOSCOPY 04/28/2011 UPPER GI ENDOSCOPY 12/27/2019 COLONOSCOPY 12/27/2019 Insurance Providers Payer Name Payer Address Payer Phone Subscriber Number Group Number Insured Name Patient Relationship to Insured Coverage Start Date Coverage End Date [facility] [address] [place] [address] [phone] [id number] THERESE TREJO Self - patient is the insured Medical (General) History Medical History History ICD Code GERD Depression Denies [place],DM,CVA,Lung disease,renal dise ase Syncope in 2010 with a negative w/u Screening colonoscopy in 06/2011-4 small tubular adenomas removed Surgical History Surgery Date(Month/Year) Appy Right arm surgery-broken arm Lung Surgery for infection with a chest tube
--- OUTSIDE RECORDS SUMMARY | 2024-10-13 14:56 | XMS_ITS | Clinical Summary ---
Author Organization [facility] Address [address] [address] Phone Care Team Providers Care Network Systems Integrator Name Role Phone Nura Gallagher MD Primary [...] nitrate (PREVIDENT 5000 SENSITIVE) 1.1-5 % Pste [place] teeth for 2 minutes, morning and night. [...] topic Medical Devices Not on file Insurance [employer] [facility] FULL MEDICARE PART A & B [employer] NET FULL MEDICARE PART A & B NET FULL MEDICARE PART A & B HEALTH SAFETY NET FULL MEDICARE PART A & B HEALTH SAFETY NET FULL MEDICARE PART A & B HEALTH SAFETY NET FULL MEDICARE PART A & B Care Teams Network Systems Integrator Relationship Specialty Start Date End Date Nura Gallagher MD [address] [place] [address] [place] [address] PCP - General 03/18/17 Additional Source Comments The information contained in this document represents components of the legal health record. It is not the complete legal health record.[facility]
--- NOTE | 2024-10-13 15:02 | A.OFFVIS_ITS ---
Intake Visit Reasons: elevated PSA Intake Note: New patient presents today for initial visit for elevated PSA * 07/24 PSA: 5.90 Urology Medication:none Blood Thinner:none Antibiotic Allergies:none Allergies mold Allergy (Mild, Verified 11/20/24 14:23) RUNNY NOSE HAYFEVER Allergy (Mild, Uncoded 08/14/24 14:36) RUNNY NOSE HPI Comments Details: 10/13/24--Mihir is a 68-year-old male who is referred due to elevated PSA. In review of his chart PSA was done April 15/2022 and was 3.10 recent PSA 07/24/2024 is 5.90 I have discussed that elevated PSA may indicate changes in the prostate including benign enlargement, cancer and an inflammatory condition. I have discussed doing a biopsy has risks and that management in early detection of prostate cancer may include active surveillance. - The [place] [employer] recommends repeating the PSA test to confirm the trend before proceeding with a biopsy. - The patient was advised to avoid sexual activity and activities that could irritate the prostate before the repeat PSA test. Results - PSA level in April 2021: 3.10 - PSA level in July 2024: 5.90 Plan- - Repeat PSA test [facility] Medical History PAC (premature atrial contraction) Personal history of nicotine dependence Prediabetes Hypertension GERD (gastroesophageal reflux disease) Hypothyroidism Anxiety Mild acid reflux Depression External hemorrhoids with complication Other affections of shoulder region, not elsewhere classified Surgical History History of colonoscopy (~07/06/11) History of surgery Family History Father Skin cancer Heart problem Mother Heart problem Social History Housing: House Alcohol intake: current Alcohol intake frequency: holidays/special occasions only Patient Tobacco Use Status: Former Tobacco user e-Cigarette/Vaping Use: Former Use service: No 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 Cognitive needs: No Hearing needs: No Vision needs: Yes (Rx glasses) Review of Systems Const All systems reviewed & are unremarkable except as noted in HPI and below Reports no additional complaints Eyes Reports no additional complaints ENT Reports no additional complaints Card Reports no additional complaints Resp Reports no additional complaints GI Reports no additional complaints Reports as per HPI Musc Reports no additional complaints Skin/Breast Reports system reviewed and no additional complaints, except as documented Neuro Reports no additional complaints Psych Reports no additional complaints Endo Reports no additional complaints Serjio/Lymph Reports no additional complaints Aller/Immun Reports no additional complaints Physical Exam Const General: healthy appearing, no acute distress and well developed Nutritional Appearance: overweight Orientation/consciousness: patient oriented x3 HEENT Head: Yes normocephalic and Yes atraumatic Eyes Conjunctivae: conjunctivae normal Neck Neck: Yes normal visual inspection Chest Chest palpation & inspection: normal inspection of the chest Resp Effort & Inspection: normal respiratory effort GI Inspection: Yes normal to inspection Neuro General: patient oriented x3 Psych Appearance: grossly normal Affect: normal affect Assessment & Plan Assessment & Plan (1) Elevated PSA: Code(s): R97.20 - Elevated prostate specific antigen [PSA] Category: Medical Plan Plan - Repeat PSA test to confirm the trend of elevation. - If PSA remains elevated, schedule a prostate biopsy to rule out malignancy. - Discussion on the potential for active surveillance if biopsy results indicate low-grade prostate cancer. Patient Instructions: The patient had an opportunity to ask questions regarding treatment plan. The patient expressed understanding and agreement with the above treatment plan. The patient is aware they should contact our office by phone for worsening of their current condition or the appearance of new symptoms. Compliance is encouraged with any medications and followup testing that is ordered. It is a privilege to be allowed the opportunity to participate in the urologic care of your patient. If you have any questions or concerns regarding treatment for the above conditions please do not hesitate to contact me. The office telephone contact is [phone]. This note is constructed in part using voice recognition software. While every effort has been made to ensure accuracy freedom of information officer errors may have been included. Yours sincerely, Vi Funez MD Scribe Plan - Not visible on output: Patient was informed and verbally consented to the use of an ambient scribe for clinic note documentation during this visit. Coding Level of Care Code New Pt Level 4 (21794) Diagnoses Elevated PSA R97.20
== END 2024-10-13 15:38 | disposition home or self-care (01) ==
LOC: HO.HUSH 14:54
PROVIDERS: PCP Internal Medicine; Visit Provider Urology
DX: R97.20 Elevated prostate specific antigen [PSA] (principal)
CPT/HCPCS: 99204

== ENCOUNTER → 2024-10-13 14:53 | Outpatient (BNVA) | payer MEDICARE, MEDICAID, SELFPAY | PROVIDERS: PCP Internal Medicine; Visit Provider Urology | DX: R97.20 Elevated prostate specific antigen [PSA] (principal) | CPT/HCPCS: 99202 ==

== ENCOUNTER 2024-11-16 12:17 | Outpatient (REF) | payer MEDICARE, MEDICAID, SELFPAY ==
--- OUTSIDE RECORDS SUMMARY | 2024-11-16 13:42 | XMS_ITS | Clinical Summary ---
Author Organization [employer] Address [address] [facility] 7t [place] [address] Care Team Providers Care Targeting Acquisition Officer Name Role Phone Unavailable Primary Care Provider Unavailabl e Allergies Active Allergy Reactions Criticality Noted Date Comments Gramineae Pollens Unknown 08/23/2023 [place] Oil 11/02/2023 Medications omeprazole (PriLOSEC) [address] capsule Take 20 mg by mouth Once per day. 4 Active meloxicam (Mobic) 15 MG tablet TAKE 1 TABLET BY MOUTH EVERY DAY WITH FOOD 4 Active levothyroxine (Synthroid, Levoxyl) 25 MCG tablet Take 25 mcg by mouth Once per day. 4 Active Sod Fluoride-Potassi um Nitrate 1.1-5 % pasteIndications :Dental caries [place] teeth for 2 minutes, morning and night. [...] Screening for malignant neoplasm of colon 2023 Social History Tobacco Use Types Packs/Day Years [...] DTaP/Tdap/Td Vaccines (1 - Tdap) 01/30/2013 01/29/2013 Dental Oral Exam 03/01/2024 08/30/2023 Dental Prophylaxis 11/03/2024 05/05/2024, 11/02/2023 COVID-19 Vaccine ( season) 2024 09/14/2022, 03/04/2022, 07/17/2020, Additional history exists Influenza Vaccine (#1) 2024 Tobacco Screening 08/08/2025 08/08/2024 Dental X-Ray: Bitewings 08/09/2025 08/09/19 25, 08/30/2023, 08/23/2023 Dental X-Ray: Full Mouth 08/30/2026 [...] Procedure Name Priority Date/Time Associated Diagnosis Comments BITEWING - SINGLE RADIOGRAPHIC IMAGE Routine 08/08/2024 [...]
--- OUTSIDE RECORDS SUMMARY | 2024-11-16 13:42 | XMS_ITS | Patient Health Record ---
Author Organization [facility] Address [address] [place] [address] Care Team Providers Care Crime Specialist Name Role Phone Aileen (RETIRED) Nura ERWIN Primary Care Provide Karel Nair [phone] Allergies Allergen (clinical drug ingredient) Drug/Non Drug [...] Problem Screening for malignant neoplasm of colon (775918830) Encounter for screening for malignant neoplasm of colon (Z12.11) Active confirmed Problem History of adenomatous polyp of colon (876049911) History of adenomatous polyp of colon (Z86.010) Active confirmed Problem Gastroesophageal reflux disease (868313980) GERD (gastroesophag eal reflux disease) (K21.9) Active confirmed Plan Of Treatment Future Test Test Name Order Date COLONOSCOPY 04/28/2011 UPPER GI ENDOSCOPY 12/27/2019 COLONOSCOPY 12/27/2019 Insurance Providers Payer Name Payer Address Payer Phone Subscriber Number Group Number Insured Name Patient Relationship to Insured Coverage Start Date Coverage End Date [facility] [address] [place] [address] [id number] THERESE TREJO Self - patient is the insured Medical (General) History Medical History History ICD Code GERD Depression Denies [place],DM,CVA,Lung disease,renal dise ase Syncope in 2010 with a negative w/u Screening colonoscopy in 06/2011-4 small tubular adenomas removed Surgical History Surgery Date(Month/Year) Appy Right arm surgery-broken arm Lung Surgery for infection with a chest tube
--- OUTSIDE RECORDS SUMMARY | 2024-11-16 13:42 | XMS_ITS | Clinical Summary ---
Author Organization [facility] Address [address] [address] Phone Care Team Providers Care Independent Crop Consultant Name Role Phone Nura Gallagher MD Primary [...] nitrate (PREVIDENT 5000 SENSITIVE) 1.1-5 % Pste [place] teeth for 2 minutes, morning and night. [...] SCREENING 12/14/2020 Adult Td,Tdap Booster 01/29/2023 01/29/2013 INFLUENZA VACCINE (#1) 2024 COVID-19 VACCINE ( season) 2024 09/14/2022, 03/04/2022, 07/17/2020, Additional history exists RSV VACCINE (1 - 1-dose 75+ series) 12/14/2030 ZOSTER VACCINES Completed 08/11/2023, 10/2023, 07/06/2016 HEPATITIS A VACCINES Aged Out [...] topic Medical Devices Not on file Insurance FULL MEDICARE PART A & B HEALTH SAFETY NET FULL MEDICARE PART A & B HEALTH SAFETY NET FULL MEDICARE PART A & B HEALTH SAFETY NET FULL MEDICARE PART A & B HEALTH SAFETY NET FULL MEDICARE PART A & B HEALTH SAFETY NET FULL MEDICARE PART A & B Member Subscriber Plan / Payer (Ef fective 2022-Present) Name:Jonathan Mihir Member ID:[id number] Relation to Subscriber:Self Name:Josias Castillone Subscriber ID:[id number] Payer ID:[id number] Group ID:Not on file Type:Medicare Address: [facility] Physician Referral Network (PRN) [facility].[address] [address] Care Teams Independent Crop Consultant Relationship Specialty Start Date End Date Nura Gallagher MD [address] [place] [address] [place] [address] PCP - General 03/18/17 Additional Source Comments The information contained in this document represents components of the legal health record. It is not the complete legal health record.[facility]
[2024-11-16 14:02] LABS: Prostate Specific Antigen 4.90 ng/mL (<0.05-4.0)
== END 2024-11-16 12:18 | disposition home or self-care (01) ==
LOC: HO.LAB 12:17
PROVIDERS: PCP Physician Assistant; Visit Provider Urology
DX: Z12.5 Encounter for screening for malignant neoplasm of prostate (principal); R97.20 Elevated prostate specific antigen [PSA]
CPT/HCPCS: 36415; 84153

== ENCOUNTER 2024-11-20 14:03 | Outpatient (AMB) | payer MEDICARE, MEDICAID, SELFPAY ==
--- NOTE | 2024-11-20 14:21 | A.OFFVIS_ITS ---
Intake Visit Reasons: 4-7 WK PSA FOLLOW UP Intake Note: Patient presents today for 4-7w/ PSA * 11/16 PSA:4.90 Urology Medication:none Blood Thinner:none Antibiotic Allergies:none Allergies mold Allergy (Mild, Verified 11/20/24 14:23) RUNNY NOSE HAYFEVER Allergy (Mild, Uncoded 08/14/24 14:36) RUNNY NOSE Medication List - Last Reconciled 11/20/24 by Vi Funez MD albuterol sulfate 90 mcg/actuation (Ventolin HFA) 2 puffs inhalation Q6H PRN aripiprazole 10 mg PO DAILY atorvastatin 10 mg PO DAILY fluticasone propion-salmeterol 100-50 mcg/dose 1 inh inhalation BID levothyroxine 25 mcg PO DAILY losartan 50 mg PO DAILY meloxicam 15 mg (2 x 7.5 mg) PO DAILY omeprazole 20 mg PO DAILY triamcinolone acetonide 0.5% 1 appl topical BID PRN HPI Comments Details: 11/20/24--patient initially evaluated 10/13/2024 for elevated PSA. reviewed repeat PSA 11/16/2024--4.9 ng/mL. Discussed further evaluation with transrectal ultrasound-guided prostate biopsy. I have discussed doing a biopsy has risks and that management in early detection of prostate cancer may include active surveillance. Transrectal Ultrasound guided biopsy of the prostate. Discussed risks to include but not limited to pain, blood in stool, urine and semen, septicemia, need to repeat biopsy. 10/13/24--Mihir is a 68-year-old male who is referred due to elevated PSA. In review of his chart PSA was done April 15/2022 and was 3.10 recent PSA 07/24/2024 is 5.90 I have discussed that elevated PSA may indicate changes in the prostate including benign enlargement, cancer and an inflammatory condition. I have discussed doing a biopsy has risks and that management in early detection of prostate cancer may include active surveillance. History of Present Illness - The patient is a 68-year-old male presenting with elevated Prostate-Specific Antigen (PSA). - The PSA level was 3.10 in April 2021 and increased to 5.90 in July 2024. - The patient was referred for further evaluation due to this elevation. - The physician explained that prostate enlargement is a normal aging process, which can cause changes in urination and PSA levels. - The possibility of prostate cancer was discussed, and a biopsy was mentioned as a potential diagnostic step if PSA levels remain elevated. - The [place] [employer] recommends repeating the PSA test to conf irm the trend before proceeding with a biopsy. - The patient was advised to avoid sexual activity and activities that could irritate the prostate before the repeat PSA test. Results - PSA level in April 2021: 3.10 - PSA level in July 2024: 5.90 Plan - Repeat PSA test to confirm the trend of elevation. - Advise the patient to avoid sexual activity and activities that could irritate the prostate before the repeat test. - If PSA remains elevated, consider scheduling a prostate biopsy to rule out malignancy. - Discuss the potential for active surveillance if biopsy results indicate low- grade prostate cancer. [facility] Medical History PAC (premature atrial contraction) Personal history of nicotine dependence Prediabetes Hypertension GERD (gastroesophageal reflux disease) Hypothyroidism Anxiety Mild acid reflux Depression External hemorrhoids with complication Other affections of shoulder region, not elsewhere classified Surgical History History of colonoscopy (~07/06/11) History of surgery Family History Father Skin cancer Heart problem Mother Heart problem Social History Housing: House Alcohol intake: current Alcohol intake frequency: holidays/special occasions only Patient Tobacco Use Status: Former Tobacco user e-Cigarette/Vaping Use: Former Use service: No 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 Cognitive needs: No Hearing needs: No Vision needs: Yes (Rx glasses) Review of Systems Const All systems reviewed & are unremarkable except as noted in HPI and below Reports no additional complaints Eyes Reports no additional complaints ENT Reports no additional complaints Card Reports no additional complaints Resp Reports no additional complaints GI Reports no additional complaints Reports as per HPI Musc Reports no additional complaints Skin/Breast Reports system reviewed and no additional complaints, except as documented Neuro Reports no additional complaints Psych Reports no additional complaints Endo Reports no additional complaints Serjio/Lymph Reports no additional complaints Aller/Immun Reports no additional complaints Telehealth Telehealth Telehealth Platform: Telephone Location of provider rendering services: practice address Location of patient: address on file Patient Identification confirmed using: Name, : Yes Telehealth method: voice only Patient verbally consented to treatment: Yes Patient verbally consented to billing insurance company: Yes Patient informed of any privacy concerns related to visit: Yes Minutes spent on Phone/Video with Pt.: 16 Assessment & Plan Assessment & Plan (1) Elevated PSA: Code(s): R97.20 - Elevated prostate specific antigen [PSA] Category: Medical Plan Scheduled TRUS prostate biopsy radiology suite under local Patient Instructions: The patient had an opportunity to ask questions regarding treatment plan. The patient expressed understanding and agreement with the above treatment plan. The patient is aware they should contact our office by phone for worsening of their current condition or the appearance of new symptoms. Compliance is encouraged with any medications and followup testing that is ordered. It is a privilege to be allowed the opportunity to participate in the urologic care of your patient. If you have any questions or concerns regarding treatment for the above conditions please do not hesitate to contact me. The office telephone contact is [phone]. This note is constructed in part using voice recognition software. While every effort has been made to ensure accuracy correctional probation officer errors may have been included. Yours sincerely, Vi Funez MD Coding Level of Care Code Tele Est Pt Level 4 (22149) Diagnoses Elevated PSA R97.20
--- OUTSIDE RECORDS SUMMARY | 2024-11-20 16:26 | XMS_ITS | Patient Health Record ---
Author Organization [facility] Address [address] [place] [address] Care Team Providers Care Political Advisor Name Role Phone Aileen (RETIRED) Nura ERWIN Primary Care Provide Karel Nair [phone] Allergies Allergen (clinical drug ingredient) Drug/Non Drug [...] Problem Screening for malignant neoplasm of colon (494685604) Encounter for screening for malignant neoplasm of colon (Z12.11) Active confirmed Problem History of adenomatous polyp of colon (663760355) History of adenomatous polyp of colon (Z86.010) Active confirmed Problem Gastroesophageal reflux disease (445474734) GERD (gastroesophag eal reflux disease) (K21.9) Active confirmed Plan Of Treatment Future Test Test Name Order Date COLONOSCOPY 04/28/2011 UPPER GI ENDOSCOPY 12/27/2019 COLONOSCOPY 12/27/2019 Insurance Providers Payer Name Payer Address Payer Phone Subscriber Number Group Number Insured Name Patient Relationship to Insured Coverage Start Date Coverage End Date [facility] [address] [place] [address] [id number] THERESE TREJO Self - patient is the insured Medical (General) History Medical History History ICD Code GERD Depression Denies [place],DM,CVA,Lung disease,renal dise ase Syncope in 2010 with a negative w/u Screening colonoscopy in 06/2011-4 small tubular adenomas removed Surgical History Surgery Date(Month/Year) Appy Right arm surgery-broken arm Lung Surgery for infection with a chest tube
--- OUTSIDE RECORDS SUMMARY | 2024-11-20 16:26 | XMS_ITS | Clinical Summary ---
Author Organization [employer] Address [address] [facility] 7t [place] [address] Care Team Providers Care Radiographic Technologist Name Role Phone Unavailable Primary Care Provider Unavailabl e Allergies Active Allergy Reactions Criticality Noted Date Comments Gramineae Pollens Unknown 08/23/2023 [place] Oil 11/02/2023 Medications omeprazole (PriLOSEC) 20 MG DR capsule Take 20 mg by mouth Once per day. 4 Active meloxicam (Mobic) 15 MG tablet TAKE 1 TABLET BY MOUTH EVERY DAY WITH FOOD 4 Active levothyroxine (Synthroid, Levoxyl) 25 MCG tablet Take 25 mcg by mouth Once per day. 4 Active Sod Fluoride-Potassi um Nitrate 1.1-5 % pasteIndications :Dental caries [place] teeth for 2 minutes, morning and night. [...]
--- OUTSIDE RECORDS SUMMARY | 2024-11-20 16:26 | XMS_ITS | Clinical Summary ---
Author Organization [facility] Address [address] [address] Phone Care Team Providers Care Farm Equipment Engineer Name Role Phone Nura Gallagher MD Primary [...] nitrate (PREVIDENT 5000 SENSITIVE) 1.1-5 % Pste [place] teeth for 2 minutes, morning and night. [...] Payer (Ef fective 2022-Present) Name:Jonathan Mihir Member ID:[id number] Relation to Subscriber:Self Name:Josias Castillone Subscriber ID:[id number] Payer ID:[id number] Group ID:Not on file Type:Medicare Address: [facility] [employer] [facility].[address] [address] Care Teams Farm Equipment Engineer Relationship Specialty Start Date End Date Nura Gallagher MD [address] [place] [address] [place] [address] PCP - General 03/18/17 Additional Source Comments The information contained in this document represents components of the legal health record. It is not the complete legal health record.[facility]
== END 2024-11-20 15:12 | disposition home or self-care (01) ==
LOC: HO.HUSH 14:04
PROVIDERS: PCP Internal Medicine; Visit Provider Urology
DX: R97.20 Elevated prostate specific antigen [PSA] (principal)
CPT/HCPCS: 99214

== ENCOUNTER 2024-12-01 07:45 | Outpatient (REF) | payer MEDICARE, MEDICAID, SELFPAY ==
--- NOTE | ~2024-12-01 | US_ITS ---
PROCEDURE: ULTRASOUND-GUIDED BIOPSY PROSTATE CLINICAL INFORMATION: Elevated PSA. COMPARISON: None available. TECHNIQUE: Ultrasound-guided prostate biopsy was performed by Dr. Davy Pacheco in the department. No radiologist was present. FINDINGS/ US/US biopsy prostate IMPRESSION: Ultrasound-guided prostate biopsy was performed by referring urologist. Electronically signed by: Steven Lopez MD 12/05/2024 10:30 AM EDT
--- OUTSIDE RECORDS SUMMARY | 2024-12-01 07:47 | XMS_ITS | Clinical Summary ---
Author Organization [facility] Address [address] [address] Phone Care Team Providers Care In Store Marketing Representative Name Role Phone Nura Gallagher MD Primary [...] nitrate (PREVIDENT 5000 SENSITIVE) 1.1-5 % Pste [place] teeth for 2 minutes, morning and night. [...] Payer (Ef fective 2022-Present) Name:Jonathan Mihir Member ID:[id number] Relation to Subscriber:Self Name:Josias Castillone Subscriber ID:[id number] Payer ID:[id number] Group ID:Not on file Type:Medicare Address: [facility] [employer] [facility].[address] [address] Care Teams In Store Marketing Representative Relationship Specialty Start Date End Date Nura Gallagher MD [address] [place] [address] [place] [address] PCP - General 03/18/17 Additional Source Comments The information contained in this document represents components of the legal health record. It is not the complete legal health record.[facility]
--- OUTSIDE RECORDS SUMMARY | 2024-12-01 07:47 | XMS_ITS | Clinical Summary ---
Author Organization [employer] Address [address] [facility] 7t [place] [address] Care Team Providers Care Human Capital Manager Name Role Phone Unavailable Primary Care Provider Unavailabl e Allergies Active Allergy Reactions Criticality Noted Date Comments Gramineae Pollens Unknown 08/23/2023 [place] Oil 11/02/2023 Medications omeprazole (PriLOSEC) 20 MG DR capsule Take 20 mg by mouth Once per day. 4 Active meloxicam (Mobic) 15 MG tablet TAKE 1 TABLET BY MOUTH EVERY DAY WITH FOOD 4 Active levothyroxine (Synthroid, Levoxyl) 25 MCG tablet Take 25 mcg by mouth Once per day. 4 Active Sod Fluoride-Potassi um Nitrate 1.1-5 % pasteIndications :Dental caries [place] teeth for 2 minutes, morning and night. [...]
--- NOTE | 2024-12-01 08:42 | W.PM.OPN ---
Operative Note Operative Note Date of Service: 12/01/24 Narrative: PreOperative Diagnosis:? ? Elevated PSA Post Operative Diagnosis:??Elevated PSA Procedure:?1. Transrectal ultrasound guided biopsy of the prostate 12 core 2. Transrectal ultrasound measurement of prostate 3. Transrectal ultrasound guided pudendal nerve block Surgeon:?Dr Vi Funez Anesthesia:? Local Indications for procedure: Elevated PSA Procedure: Preoperative antibiotics confirmed. After informed consent was verified the patient was placed on the procedure table in left lateral position. Patient identity confirmed. Safety pause time-out performed. Digital rectal exam performed to dilate rectal sphincter, iodine mixed with lubricant jelly 30 cc placed per rectum. Ultrasound probe was placed per rectum. The prostate was visualized. Prostatic calcifications were noted. The prostate was measured width 5.71 cm, height 3.46 cm, length 4.39 cm with a volume of 41.2 mL. An ultrasound guided pudendal nerve block was performed using 10 cc of 1% lidocaine. A 12 core biopsy was performed from the left base, left mid, left apex and right base, mid, apex 2 biopsies from each section. The ultrasound probe was removed and digital palpation of the prostate for 1-2 minutes for hemostasis was performed. The patient tolerated the procedure well. Complications: None
[2024-12-01] MEDS: Lidocaine HCl 1 % MPF 5 ML VIAL 10 ML SUBCUT (08:59)
== END 2024-12-01 07:46 | disposition home or self-care (01) ==
LOC: HO.US 07:45
PROVIDERS: Visit Provider Urology
DX: R97.20 Elevated prostate specific antigen [PSA] (principal)
CPT/HCPCS: 55700; 76942; 88305; 88344; J2003

== ENCOUNTER → 2024-12-01 07:45 | Outpatient (BNV) | payer MEDICARE, MEDICAID, SELFPAY | PROVIDERS: Visit Provider Urology | DX: R97.20 Elevated prostate specific antigen [PSA] (principal) | CPT/HCPCS: 55700; 76872; 76942 ==

== ENCOUNTER → 2024-12-01 07:46 | Outpatient (BNV) | payer MEDICARE, MEDICAID, SELFPAY | PROVIDERS: Visit Provider Radiology Diagnostic Radiology | DX: R97.20 Elevated prostate specific antigen [PSA] (principal) | CPT/HCPCS: 76942 ==

== ENCOUNTER 2024-12-11 14:08 | Outpatient (AMB) | payer MEDICARE, MEDICAID, SELFPAY ==
--- NOTE | 2024-12-11 14:18 | MHC.OFFVIS ---
Vital Signs 12/11/24 14:19 Height 5 ft 8 in Weight 236 lb 15.951 oz BMI 36.0 BP 120/72 Blood Pressure Location Lt brachial Position Sitting Pulse 89 Pulse Source Pulse Oximeter Pulse Oximetry (%) 94 Oxygen Delivery Method Room Air Intake Visit Reasons: Obstructive sleep apnea Intake Note: pt is here as a new patient to talk about the sleep study, and he would like to get back into low dose lung screening program. Copy Worker Required: No Hydramatic Mechanic: Hydramatic Mechanic offered & declined Allergies mold Allergy (Mild, Verified 12/11/24 14:38) RUNNY NOSE HAYFEVER Allergy (Mild, Uncoded 12/11/24 14:38) RUNNY NOSE Medication List - Last Reconciled 12/11/24 by Loki Boateng MD albuterol sulfate 90 mcg/actuation (Ventolin HFA) 2 puffs inhalation Q6H PRN atorvastatin 10 mg PO DAILY fluticasone propion-salmeterol 100-50 mcg/dose 1 inh inhalation BID levothyroxine 25 mcg PO DAILY losartan 50 mg PO DAILY meloxicam 15 mg (2 x 7.5 mg) PO DAILY omeprazole 20 mg PO DAILY triamcinolone acetonide 0.5% 1 appl topical BID PRN Do you need a note to return to daycare/school/sports/work: No HPI HPI Obstructive sleep apnea: Details: THIS 68 YEARS OLD 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 IS REFERRED FOR MANAGEMENT OF HIS SLEEP APNEA. FOR THE PAST FEW YEARS HE HAS HAD COMPLAINED OF WAKING UP FREQUENTLY DURING THE NIGHT, AND SUBSEQUENTLY HAVING URGE TO TAKE FREQUENT NAPS DURING THE DAYTIME. HE IS SINGLE, STAYS AT HOME, AND IS RELATIVELY SEDENTARY. HE COOKS HIS OWN MEALS AND EATS PLENTY OF CARBOHYDRATES. HE HAS PUT ON WEIGHT IN THE PAST FEW YEARS. HE HAS MILD CHRONIC OBSTRUCTIVE PULMONARY DISEASE RELATED TO HIS PREVIOUS SMOKING, ALSO HAS MILD HYPOTHYROIDISM, HYPERTENSION AND HYPERLIPIDEMIA. HAD HOME-BASED SLEEP STUDY ON OCTOBER 04 OF THIS YEAR AND IT WAS POSITIVE FOR OBSTRUCTIVE SLEEP APNEA. HE HAS PAST HISTORY OF SMOKING FOR ABOUT 30 PACK YEARS, QUIT ABOUT 7 YEARS AGO BUT AFTER THAT INDULGE IN VAPING, WHICH HE QUIT A FEW YEARS AGO. HE DOES HAVE MILD OBSTRUCTIVE AIRWAY DISORDER, AND IS BEING TREATED WITH FLUTICASONE-SALMETEROL 100-51 INHALATION B.I.D. AND ALBUTEROL JUST PRN. [facility] Medical History (Updated 12/11/24 @ 15:18 by Loki Boateng MD) COPD (chronic obstructive pulmonary disease) TAPAN (obstructive sleep apnea) Obesity (BMI 30-39.9) PAC (premature atrial contraction) Personal history of nicotine dependence Prediabetes Hypertension GERD (gastroesophageal reflux disease) Hypothyroidism Anxiety Mild acid reflux Depression External hemorrhoids with complication Other affections of shoulder region, not elsewhere classified Surgical History History of colonoscopy (~07/06/11) History of surgery Family History Father Skin cancer Heart problem Mother Heart problem Social History Housing: House Alcohol intake: current Alcohol intake frequency: holidays/special occasions only Patient Tobacco Use Status: Former Tobacco user e-Cigarette/Vaping Use: Former Use service: No 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 Cognitive needs: No Hearing needs: No Vision needs: Yes (Rx glasses) Review of Systems Const All systems reviewed & are unremarkable except as noted in HPI and below Eyes Reports no additional complaints ENT Reports no additional complaints Card Denies chest pain, Denies irregular heart rhythm, Reports leg edema (MILD SWELLING OF THE FEET AND ANKLE TOWARD THE AFTERNOONS) and Reports dyspnea on exertion (MILD) Resp Reports as per HPI, Reports dyspnea on exertion (MILD) and Denies wheezing GI Reports heartburn (INTERMITTENT GERD SYMPTOMS) Reports nocturia Musc Reports no additional complaints Skin/Breast Reports system reviewed and no additional complaints, except as documented Neuro Reports no additional complaints Psych Reports no additional complaints Endo Reports no additional complaints Serjio/Lymph Reports no additional complaints Aller/Immun Reports no additional complaints and Denies wheezing Physical Exam Vital Signs: Last Vital Signs Pulse 89 12/11/24 14:19 BP 120/72 12/11/24 14:19 Pulse Ox 94 12/11/24 14:19 Oxygen Delivery Method Room Air 12/11/24 14:19 BMI result Body Mass Index 36.0 Const General: healthy appearing (EXCEPT FOR BEING OVERWEIGHT), comfortable, no acute distress, alert and awake Orientation/consciousness: patient oriented x3 HEENT Head: Yes normal to inspection General nose exam: No nasal polyps present and No nasal discharge present Face and sinus: Yes sinuses nontender Mouth: oropharynx abnormals (OROPHARYNGEAL SPACE IS NARROW, MALLAMPATI SCALE 3) Throat: Yes posterior oropharynx normal Eyes General: appearance normal, both eyes and all related structures Neck Neck: Yes normal visual inspection, Yes no lymphadenopathy, Yes trachea midline, Yes no JVD and Yes other (NECK CIRCUMFERENCE 18 IN) Thyroid: Thyroid normal Chest Chest palpation & inspection: normal inspection of the chest, normal palpation of entire chest wall and no tenderness Resp Effort & Inspection: normal respiratory effort Auscultation: clear to auscultation bilaterally, no crackles, no rhonchi and no wheezes Cardio Palpation: normal PMI Rate: regular rate Rhythm: regular rhythm Heart sounds: no gallops and no murmurs Peripheral pulses: Peripheral pulses 2+ throughout GI Palpation (GI): Soft to palpation, nontender, No hepatosplenomegaly present and no masses Auscultation: normal bowel sounds Back/Spine/Pelvis Thoracic/Lumbar Spine: thoracic and lumbar spine normal to inspection Skin General skin exam: no rashes or lesions noted Neuro General: patient oriented x3 and no focal motor deficits Cranial nerves: Yes CN's II-XII intact bilaterally Extrem General: Yes normal to inspection, Yes no clubbing, cyanosis or edema and Yes no calf tenderness Psych Appearance: grossly normal and well kempt Speech and movement: Normal speech and movement present Results Reviewed Results Reviewed: LDCT 2020 BENIGN CLASS 2 HOME-BASED SLEEP STUDY. ON 10/04 TOTAL SLEEP TIME AHI 20.4, SNORING FOR 13% OF THE SLEEP TIME AVERAGE O2 SAT 91% BUT O2 SAT BELOW 88% FOR ONLY 3 MINUTES Assessment & Plan Assessment & Plan (1) Obesity (BMI 30-39.9): Comment: HE IS GROSSLY OBESE WITH CURRENT BMI 36. HE MAKES HIS OWN MEALS AT HOME AND LOVES TO EAT BREAD AND RICE ALSO POTATOES. Code(s): E66.9 - Obesity, unspecified Category: Medical Plan: EDUCATED ABOUT THE DIET TO CUT OUT CARBOHYDRATES AND ALSO CUT DOWN THE PORTIONS OF MEALS. ALSO ADVISED TO CONSULTED DIETITIAN BUT HE DOES NOT WANT TO DO THAT HE WOULD TRY TO WATCH HIS DIET HIMSELF. ADVISED TO WALK DAILY BUT HE SAY IS HE HAS DIFFICULTY IN WALKING (2) TAPAN (obstructive sleep apnea): Comment: HE IS SLEEP STUDY IS POSITIVE FOR MODERATELY SEVERE SLEEP APNEA. HE NEEDS TO BE STARTED ON A DEFINITE IT TREATMENT. Code(s): G47.33 - Obstructive sleep apnea (adult) (pediatric) Category: Medical Plan: DISCUSSED THE VARIOUS OPTIONS OF TREATMENT. THE BEST TREATMENT AND GOLD STANDARD IS STARTING TO USE CPAP. HE IS EDUCATED WORD THE CPAP AND ITS USAGE. CPAP WITH AUTO PAP MODE PRESSURE SETTING 6-20 CM, USING FULLFACE MASK IS THE BEST OPTION AT THIS TIME. AFTER FULL EDUCATION HE IS AGREEABLE TO GO. ON THE CPAP THERAPY WILL BE SEEN BACK IN 6 WEEKS TO GO OVER. THE COMPLIANCE (3) COPD (chronic obstructive pulmonary disease): Comment: HE HAS PAST HISTORY OF SMOKING AND DOES HAVE SYMPTOMS OF MILD INTERMITTENT COUGH WITH SHORTNESS OF BREATH ON WALKING UP HILL. HE IS BEING TREATED WITH ADVAIR 100-51 INHALATION B.I.D. AND ALBUTEROL 2 PUFFS Q 6 HOURS P.R.N.. AT THIS TIME THE COPD IS UNDER GOOD CONTROL AND IS LUNGS ARE VERY CLEAR. Code(s): J44.9 - Chronic obstructive pulmonary disease, unspecified Category: Medical Plan: CONTINUE ADVAIR 100-51 INHALATION B.I.D.. USE ALBUTEROL HFA 2 PUFFS Q 4-6 HOURS ONLY P.R.N.. (4) Personal history of nicotine dependence: Comment: (former smoker >30pyh - Quit ~ 2020) Code(s): Z87.891 - Personal history of nicotine dependence Category: Medical Plan: HE HAS PAST HISTORY OF SMOKING, 30 PACK YEARS. HE WAS IN ANNUAL LUNG SCREENING PROGRAM UP UNTIL 2020, . AFTER THAT HE QUIT HE WOULD LIKE TO JOIN THIS SCREENING PROGRAM ONCE AGAIN HE IS RE-REFERRED LUNG SCANNING PROGRAM. Coding Level of Care Code New Pt Level 3 (70849) Diagnoses Obesity (BMI 30-39.9) E66.9 TAPAN (obstructive sleep apnea) G47.33 COPD (chronic obstructive pulmonary disease) J44.9 Personal history of nicotine dependence Z87.891
[2024-12-11 14:19] VITALS: BP 120/72; PULSE 89; O2SAT 94; BMI 36.0
--- OUTSIDE RECORDS SUMMARY | 2024-12-11 15:59 | XMS_ITS | Clinical Summary ---
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 4 Active meloxicam (Mobic) 15 MG tablet TAKE 1 TABLET BY MOUTH EVERY DAY WITH FOOD 4 Active levothyroxine (Synthroid, Levoxyl) 25 MCG tablet Take 25 mcg by mouth Once per day. 4 Active Sod Fluoride-Potassi um Nitrate 1.1-5 % pasteIndications :Dental caries Jefferson teeth for 2 minutes, morning and night. [...]
--- OUTSIDE RECORDS SUMMARY | 2024-12-11 15:59 | XMS_ITS | Patient Health Record ---
Author Organization 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 Name Role Phone Aileen (RETIRED) Nura ERWIN Primary Care Provide Karel Nair [phone] Allergies Allergen (clinical drug ingredient) Drug/Non Drug [...] Problem Screening for malignant neoplasm of colon (563606984) Encounter for screening for malignant neoplasm of colon (Z12.11) Active confirmed Problem History of adenomatous polyp of colon (049931028) History of adenomatous polyp of colon (Z86.010) Active confirmed Problem Gastroesophageal reflux disease (662782066) GERD (gastroesophag eal reflux disease) (K21.9) Active confirmed Plan Of Treatment Future Test Test Name Order Date COLONOSCOPY 04/28/2011 UPPER GI ENDOSCOPY 12/27/2019 COLONOSCOPY 12/27/2019 Insurance Providers Payer Name Payer Address Payer Phone Subscriber Number Group Number Insured Name Patient Relationship to Insured Coverage Start Date Coverage End Date [facility] [address] [place] [address] [id number] THERESE TREJO Self - patient is the insured Medical (General) History Medical History History ICD Code GERD Depression Denies OH,DM,CVA,Lung disease,renal dise ase Syncope in 2010 with a negative w/u Screening colonoscopy in 06/2011-4 small tubular adenomas removed Surgical History Surgery Date(Month/Year) Appy Right arm surgery-broken arm Lung Surgery for infection with a chest tube
== END 2024-12-11 14:59 | disposition home or self-care (01) ==
LOC: HO.HPS 14:09
PROVIDERS: PCP Physician Assistant; Visit Provider Internal Medicine
DX: E66.9 Obesity, unspecified (principal); G47.33 Obstructive sleep apnea (adult) (pediatric); J44.9 Chronic obstructive pulmonary disease, unspecified; Z87.891 Personal history of nicotine dependence
CPT/HCPCS: 99203

== ENCOUNTER → 2024-12-11 14:08 | Outpatient (BNVA) | payer MEDICARE, MEDICAID, SELFPAY | PROVIDERS: PCP Physician Assistant; Visit Provider Internal Medicine | DX: J44.9 Chronic obstructive pulmonary disease, unspecified (principal); G47.33 Obstructive sleep apnea (adult) (pediatric); E66.9 Obesity, unspecified; Z87.891 Personal history of nicotine dependence | CPT/HCPCS: 99202 ==

== ENCOUNTER 2024-12-22 14:43 | Outpatient (AMB) | payer MEDICARE, MEDICAID, SELFPAY ==
--- NOTE | 2024-12-22 14:51 | A.OFFVIS_ITS ---
Intake Visit Reasons: Prostate biopsy results Intake Note: Patient presents today for prostate biopsy results Urology Medication:none Blood Thinner:none Antibiotic Allergies:none Allergies mold Allergy (Mild, Verified 12/22/24 14:51) RUNNY NOSE HAYFEVER Allergy (Mild, Uncoded 12/11/24 14:38) RUNNY NOSE Medication List - Last Reconciled 12/22/24 by Vi Funez MD albuterol sulfate 90 mcg/actuation (Ventolin HFA) 2 puffs inhalation Q6H PRN atorvastatin 10 mg PO DAILY finasteride (Proscar) 5 mg PO DAILY fluticasone propion-salmeterol 100-50 mcg/dose 1 inh inhalation BID levothyroxine 25 mcg PO DAILY losartan 50 mg PO DAILY meloxicam 15 mg (2 x 7.5 mg) PO DAILY omeprazole 20 mg PO DAILY triamcinolone acetonide 0.5% 1 appl topical BID PRN HPI Comments Details: 12/22/24--Mihir is here post prostate biopsy on 12/01/2024 results came back 2 biopsy cores left apex medial and right mid lateral Jessica score 3+3=6 grade group 1 involving less than 5% tissue evaluated. History of Present Illness The patient is a 69-year-old male presenting for post-prostate biopsy evaluation. The patient underwent a prostate biopsy on December 01, 2024, which revealed prostate cancer with a Pauline score of 3+3=6, Grade Group 1. The cancer was identified as low-grade, and the patient was informed about the Jessica scoring system and Grade Groups, with Group 1 being the earliest stage. The patient was advised on active surveillance as a management strategy due to the early detection of the cancer. The discussion included the potential slow- growing nature of prostate cancer and the quality of life considerations associated with more aggressive treatments such as surgery and radiation, which may have SE to include erectile dysfunction and urinary incontinence. The plan includes monitoring PSA levels and performing an MRI in six months to evaluate any changes. If suspicious lesions are identified, a repeat MR targeted biopsy may be conducted to assess progression from Grade Group 1 to higher groups. The patient was started on Proscar to help shrink prostate cells, with a discussion on potential side effects such as breast sensitivity. Results - Prostate biopsy: Pauline score 3+3=6, Grade Group 1, (left apex medial and right mid-lateral) Plan Prostate Cancer, Jessica Score 3+3=6, Grade Group 1 - Initiate active surveillance due to early-stage detection. - Plan for MRI and PSA monitoring in six months to assess for any changes. - Consider repeat biopsy if MRI identifies suspicious lesions. - Start Proscar. 11/20/24--patient initially evaluated 10/13/2024 for elevated PSA. reviewed repeat PSA 11/16/2024--4.9 ng/mL. Discussed further evaluation with transrectal ultrasound-guided prostate biopsy. I have discussed doing a biopsy has risks and that management in early detection of prostate cancer may include active surveillance. Transrectal Ultrasound guided biopsy of the prostate. Discussed risks to include but not limited to pain, blood in stool, urine and semen, septicemia, need to repeat biopsy. 10/13/24--Mihir is a 68-year-old male who is referred due to elevated PSA. In review of his chart PSA was done April 15/2022 and was 3.10 recent PSA 07/24/2024 is 5.90 I have discussed that elevated PSA may indicate changes in the prostate including benign enlargement, cancer and an inflammatory condition. I have discussed doing a biopsy has risks and that management in early detection of prostate cancer may include active surveillance. History of Present Illness - The patient is a 68-year-old male presenting with elevated Prostate-Specific Antigen (PSA). - The PSA level was 3.10 in April 2021 and increased to 5.90 in July 2024. - The patient was referred for further evaluation due to this elevation. - The physician explained that prostate enlargement is a normal aging process, which can cause changes in urination and PSA levels. - The possibility of prostate cancer was discussed, and a biopsy was mentioned as a potential diagnostic step if PSA levels remain elevated. - The [employer] recommends repeating the PSA test to confirm the trend before proceeding with a biopsy. - The patient was advised to avoid sexual activity and activities that could irritate the prostate before the repeat PSA test. Results - PSA level in April 2021: 3.10 - PSA level in July 2024: 5.90 Plan - Repeat PSA test to confirm the trend of elevation. - Advise the patient to avoid sexual activity and activities that could irritate the prostate before the repeat test. - If PSA remains elevated, consider scheduling a prostate biopsy to rule out malignancy. - Discuss the potential for active surveillance if biopsy results indicate low- grade prostate cancer. [facility] Medical History COPD (chronic obstructive pulmonary disease) TAPAN (obstructive sleep apnea) Obesity (BMI 30-39.9) PAC (premature atrial contraction) Personal history of nicotine dependence Prediabetes Hypertension GERD (gastroesophageal reflux disease) Hypothyroidism Anxiety Mild acid reflux Depression External hemorrhoids with complication Other affections of shoulder region, not elsewhere classified Surgical History History of colonoscopy (~07/06/11) History of surgery Family History Father Skin cancer Heart problem Mother Heart problem Social History Housing: House Alcohol intake: current Alcohol intake frequency: holidays/special occasions only Patient Tobacco Use Status: Former Tobacco user e-Cigarette/Vaping Use: Former Use service: No 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 Cognitive needs: No Hearing needs: No Vision needs: Yes (Rx glasses) Review of Systems Const All systems reviewed & are unremarkable except as noted in HPI and below Reports no additional complaints Eyes Reports no additional complaints ENT Reports no additional complaints Card Reports no additional complaints Resp Reports no additional complaints GI Reports no additional complaints Reports as per HPI Musc Reports no additional complaints Skin/Breast Reports system reviewed and no additional complaints, except as documented Neuro Reports no additional complaints Psych Reports no additional complaints Endo Reports no additional complaints Serjio/Lymph Reports no additional complaints Aller/Immun Reports no additional complaints Results AMB Urinalysis, Automated UA Leukoctes 0 Dee/uL Last Edit by Maira Huang on 12/22/24 17:09 UA Nitrite Negative Last Edit by Maira Huang on 12/22/24 17:09 UA Urobilinogen 0.2 mg/dL Last Edit by Maira Huang on 12/22/24 17:09 UA Protein 0 mg/dL Last Edit by Maira Huang on 12/22/24 17:09 UA pH 6.0 Last Edit by Maira Huang on 12/22/24 17:09 UA Blood 0 Sandor/uL Last Edit by Maira Huang on 12/22/24 17:09 UA Specific Rowland 1.015 Last Edit by Maira Huang on 12/22/24 17:09 UA Ketone Negative Last Edit by Maira Huang on 12/22/24 17:09 UA Bilirubin 0 mg/dL Last Edit by Maira Huang on 12/22/24 17:09 UA Glucose 1000 mg/dL Last Edit by Maira Huang on 12/22/24 17:09 Results Reviewed Results Reviewed: Laboratory Last Values Urine pH (Auto) 6.0 12/22/24 16:04 Specific [place] (Auto) 1.015 12/22/24 16:04 Urine Protein (Auto) 0 mg/dL 12/22/24 16:04 Glucose (UA)(Auto) 1000 mg/dL 12/22/24 16:04 Urine Ketones (Auto) Negative 12/22/24 16:04 Urine Blood (Auto) 0 Sandor/uL 12/22/24 16:04 Urine Nitrite (Auto) Negative 12/22/24 16:04 Urine Bilirubin (Auto) 0 mg/dL 12/22/24 16:04 Urine Urobilinogen (Auto) 0.2 mg/dL 12/22/24 16:04 Leukocyte Esterase (Auto) 0 Dee/uL 12/22/24 16:04 Assessment & Plan Assessment & Plan (1) Adenocarcinoma of prostate: Code(s): C61 - Malignant neoplasm of prostate Category: Medical Plan Plan Prostate Cancer, Pauline Score 3+3=6, Grade Group 1 - Initiate active surveillance due to early-stage detection. - Plan for MRI and PSA monitoring in six months to assess for any changes. - Consider repeat biopsy if MRI identifies suspicious lesions. - Start Proscar. Orders: Orders MR CAD 6 Months C61 - Malignant neoplasm of prostate PSA,Total (Free>4and<10) 12/22/24 C61 - Malignant neoplasm of prostate AMB Urinalysis Automated 12/22/24 Z13.9 - Encounter for screening, unspecified MR Prostate wo/w con 6 Months C61 - Malignant neoplasm of prostate Medications: New finasteride (Proscar) 5 mg PO DAILY 90 tabs 3RF Patient Instructions: The patient had an opportunity to ask questions regarding treatment plan. The patient expressed understanding and agreement with the above treatment plan. The patient is aware they should contact our office by phone for worsening of their current condition or the appearance of new symptoms. Compliance is encouraged with any medications and followup testing that is ordered. It is a privilege to be allowed the opportunity to participate in the urologic care of your patient. If you have any questions or concerns regarding treatment for the above conditions please do not hesitate to contact me. The office telephone contact is [phone]. This note is constructed in part using voice recognition software. While every effort has been made to ensure accuracy database reporting consultant errors may have been included. Yours sincerely, Vi Funez MD Scribe Plan - Not visible on output: Patient was informed and verbally consented to the use of an ambient scribe for clinic note documentation during this visit. Coding Level of Care Code Est Pt Level 4 (00047) Complex EM visit Add On G2211 Diagnoses Adenocarcinoma of prostate C61
== END 2024-12-22 15:28 | disposition home or self-care (01) ==
LOC: HO.HUSH 14:44
PROVIDERS: PCP Internal Medicine; Visit Provider Urology
DX: Z13.9 Encounter for screening, unspecified (principal)
CPT/HCPCS: 99214; G2211

== ENCOUNTER → 2024-12-22 14:43 | Outpatient (BNVA) | payer MEDICARE, MEDICAID, SELFPAY | PROVIDERS: PCP Internal Medicine; Visit Provider Urology | DX: C61 Malignant neoplasm of prostate (principal); Z13.9 Encounter for screening, unspecified | CPT/HCPCS: 81003; 99212 ==

== ENCOUNTER 2025-02-12 13:03 | Outpatient (REF) | payer MEDICARE, MEDICAID, SELFPAY ==
[2025-02-12 15:23] LABS: Alanine Aminotransferase 55 U/L (0-40); Albumin Level 4.4 g/dL (3.5-5.0); Alkaline Phosphatase 108 U/L (39-117); Anion Gap 10 (12-20); Aspartate Amino Transferase 27 U/L (5-37); Blood Urea Nitrogen 24 mg/dL (9-16); Calcium 8.9 mg/dL (8.4-10.2); Carbon Dioxide 25 mmol/L (22-29); Chloride 112 mmol/L (96-108); Cholesterol 215 mg/dL (<200); Estimated Glomerular Filt Rate > 60; HDL Cholesterol 53 mg/dL (>40); Potassium 4.0 mmol/L (3.3-5.1); Sodium 143 mmol/L (135-145); Total Protein 6.7 g/dL (6.5-8.0); Triglycerides 212 mg/dL (<150)
== END 2025-02-12 13:04 | disposition home or self-care (01) ==
LOC: HO.LAB 13:03
PROVIDERS: PCP Physician Assistant; Visit Provider Physician Assistant
DX: I10 Essential (primary) hypertension (principal); E78.5 Hyperlipidemia, unspecified; E03.9 Hypothyroidism, unspecified; R74.01 Elevation of levels of liver transaminase levels; R73.03 Prediabetes; E66.812 Obesity, class 2; C61 Malignant neoplasm of prostate; J44.9 Chronic obstructive pulmonary disease, unspecified; G47.33 Obstructive sleep apnea (adult) (pediatric); Z99.89 Dependence on other enabling machines and devices
CPT/HCPCS: 36415; 80048; 80061; 80076; 83036; 83721; 84443; 99212

== ENCOUNTER 2025-02-12 13:03 | Outpatient (AMB) | payer MEDICARE, MEDICAID, SELFPAY ==
--- NOTE | 2025-02-12 13:13 | A.OFFPC_ITS ---
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 Accompanied by: Self / Same As Patient Allergies mold Allergy (Mild, Verified 02/12/25 13:13) RUNNY NOSE HAYFEVER Allergy (Mild, Uncoded 02/12/25 13:13) RUNNY NOSE Medication List - Last Reconciled 02/12/25 by SUNDEEP Carrillo albuterol sulfate 90 mcg/actuation 2 puffs PO Q6H PRN atorvastatin 10 mg PO DAILY finasteride (Proscar) 5 mg PO DAILY fluticasone propion-salmeterol 100-50 mcg/dose 1 inh PO BID levothyroxine 25 mcg PO DAILY losartan 50 mg PO DAILY meloxicam 15 mg (2 x 7.5 mg) PO DAILY omeprazole 20 mg PO DAILY triamcinolone acetonide 0.5% 1 appl topical BID PRN Tobacco use date assessed: 07/24/24 Dental Screening Dental Screen Date: 07/24/24 HPI HPI Comments History of Present Illness Details History of Present Illness The patient is a 69 year old individual with history of COPD not on home O2, hypothyroidism, hypertension, osteoarthritis, newly diagnosed prostate cancer, obesity presenting with concerns about significant weight gain and is requesting medication for weight loss as well as for routine follow-up Obesity: - The patient reports significant weight gain, weighs 109 kg, and is concerned about the weight being out of control. - The current weight of 240 lbs is tamiko rning, and the patient has gained 4 pounds since the last visit. - The patient reports eating large quant ities and never feeling full. - The patient reports no current exercis e regimen due to being short-winded. - In the past, the patient was athletic, a runner, and weighed 100 pounds less in their 30s. - Around 2018, the patient lost 50 pound s (from 200 lbs to 150 lbs) by riding a bicycle four times a week for long distances, but has since regained the weight. Obstructive Sleep Apnea: - The patient has a diagnosis of moderat zeina severe obstructive sleep apnea, with reports of stopping breathing 20 times an hour. - The patient struggles with CPAP therap y, finding the mask bothersome and taking it off after a few hours. - The patient has 72 days remaining in a n evaluation period and must wear the device for at least four hours per night for coverage. Prostate Cancer: - The patient was recently diagnosed wit h prostate cancer following a biopsy. - The cancer is considered non-aggressiv e and very mild, and is being managed with watchful waiting. - A follow-up MRI is scheduled in [facility]. Hyperlipidemia: - The patient's cholesterol was uncontro lled at the last checkup. - The patient is unsure if they are curr ently taking a prescribed cholesterol medication, atorvastatin (Lipitor). Prediabetes: - The patient has a diagnosis of prediab etes, with a hemoglobin A1c of 5.8%. 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 - The patient uses a maintenance inhaler twice a day and a rescue inhaler (albuterol) a couple of times per day. Medical History: - Class 2 obesity - Moderately severe obstructive sleep ap stephanie - Chronic obstructive pulmonary disease - Prediabetes - Prostate cancer - Hyperlipidemia - Hypertension - History of depression, previously on edication but stopped. - Arthritis - Subclinical hypothyroidism - Supraventricular ectopy - Mildly dilated aorta-4.1 cm Surgical History: - Prostate biopsy Medications: - Losartan 50 mg for hypertension - Finasteride 5 mg for prostate - Meloxicam for arthritis - Omeprazole - Maintenance inhaler twice daily for [place] PD - Albuterol (rescue inhaler) as needed, used a couple of times per day - Patient denies taking prescribed levot hyroxine for thyroid. - Patient is not believed to be taking p rescribed atorvastatin for cholesterol. Social History: - Diet: The patient cooks for themself b ut reports eating large quantities and not feeling a sensation of fullness. - Exercise: The patient does not do any exercise, citing being short-winded. 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 - Past Weight Management: Around 2018, t he patient lost 50 pounds by riding a bicycle four times a week. Family History: - Denies family history of thyroid cance r. Diagnostic Results: - A1c: 5.8%, which is in the prediabetic range. - Thyroid level: One level was slightly high at 4.74. - Echocardiogram: Good heart function, n o significant valve disease, and a slightly dilated aorta; a repeat echo in two years is suggested. - Holter monitor: Average heart rate of 84 bpm with supraventricular ectopy noted, but no atrial fibrillation. - Prostate biopsy: Confirmed non-aggress boyd prostate cancer. Review of Systems - Constitutional: Reports significant we ight gain and fatigue. - Respiratory: Reports dyspnea on exerti on and cough. - Cardiovascular: Reports feeling skippe d heartbeats. - Gastrointestinal: Reports lack of sati ety. - Genitourinary: Reports diagnosis of pr ostate cancer. - Musculoskeletal: Reports arthritis. - Psychiatric: Reports feeling kind of depressed. - Past Medical History: Denies personal history of pancreatitis. Vital Signs - Weight: 109 kg - Blood Pressure: 124/62 mmHg - Heart Rate: 103 bpm, which slowed to t he 80s during the exam. Health Maintenance - Weight management: Patient counseled o n weight loss medication (Zepbound), dietary changes including smaller portions, increased protein, fruits, and vegetables, and limiting sugars and processed foods. - Exercise: The patient was encouraged t o slowly reintroduce physical activity, with walking suggested as a starting point. - Prostate cancer screening: The patient is on active surveillance for non- aggressive prostate cancer and will have a follow-up MRI in five months. - Cardiovascular health: Discussed risks associated with weight, including cardiac complications, worsening blood pressure, and diabetes. - Obstructive sleep apnea management: patient was counseled on the importance of adhering to CPAP therapy. Physical Exam Constitutional: Awake and alert, no apparent distress Heart: RRR, S1S2, no murmurs, PACs noted, heart rate slightly elevated at 103 but slows to 80s with breathing Lungs: CTA bilaterally, no wheezing, lungs are clear Extremities: No calf tenderness Skin: Warm and dry Neuro: Alert and oriented x 3 Assessment and Plan 1. Class 2 Obesity (E66.01) The patient has significant weight gain (currently 109 kg/240 lbs) and has requested medication for weight loss, citing a lack of satiety and large portion sizes. The plan is to seek prior authorization for Zepbound, leveraging comorbidities of obstructive sleep apnea, COPD, and prediabetes. The patient was counseled on the side effects of Zepbound, including GI symptoms and decreased appetite, and instructed on the starting dose of 2.5 mg weekly for one month if approved. Dietary counseling was provided, focusing on smaller portions and a healthier food composition. Exercise was encouraged to improve conditioning and overall cardiac function. 2. Moderately Severe Obstructive Sleep A pnea (G47.33) The patient has a CPAP device but reports poor adherence due to discomfort. The patient was educated on the importance of consistent use, especially during the current 72-day evaluation period, with a minimum of four hours of use per night. 3. Hyperlipidemia (E78.5) The patient's cholesterol was uncontrolled on previous testing, and the patient is unsure about adherence to atorvastatin. A lipid panel has been ordered for to day to assess current status. Statin therapy will be initiated or adjusted based on the new lab results and the patient's calculated cardiovascular risk. 4. Prediabetes (R73.03) An A1c of 5.8% places the patient at the start of the prediabetic range. This diagnosis will also be used to justify the need for Zepbound. Labs ordered for today include a repeat A1c to confirm status, which can be used as further evidence for insurance. 5. Prostate Cancer (C61) The patient has a new diagnosis of non-aggressive prostate cancer confirmed by biopsy and is being managed by urology with a watchful waiting approach. A follow-up MRI is scheduled in five months. 6. Chronic Obstructive Pulmonary Disease (J44.9) The patient reports using the albuterol rescue inhaler multiple times daily. The patient was reminded to use it only for acute symptoms like shortness of breath or wheezing. 7. Supraventricular Ectopy (I49.3) Past Holter monitoring revealed frequent PACs but no AFib. The patient was josh ssured that this is not immediately dangerous but should report any new or worsening symptoms such as dizziness, lightheadedness, or shortness of breath at rest. 8. Follow-up The patient will follow up in three months to monitor weight, medication tolerance, and overall progress. The patient was instructed to complete lab work today. Plan - Submit a prior authorization request f or Zepbound to manage class 2 obesity, supported by diagnoses of moderately severe obstructive sleep apnea and prediabetes. - If approved, initiate Zepbound at a st arting dose of 2.5 mg subcutaneously once weekly for the first month. - Patient to complete lab work today, in cluding a lipid panel and A1c, to provide current data for the prior authorization and to guide management of hyperlipidemia and prediabetes. - Assess lipid panel results and calcula te cardiovascular risk to determine the need for statin therapy. - Counseled patient on lifestyle modific ations, including dietary changes (smaller portions, improved food quality) and slowly increasing physical activity. - Reinforced the importance of CPAP adhe rence for obstructive sleep apnea, with a goal of at least four hours of use per night. - Patient to continue current medication s for hypertension, prostate, and arthritis as confirmed. - Schedule a follow-up appointment in to review weight progress and medication tolerance. - Patient instructed to send a portal [employer] with any medication issues before the next appointment. Patient was informed and verbally consented to the use of an ambient scribe for clinic note documentation during this visit. Discussion Notes I discussed the patient's concern about significant weight gain and their request for medication. We reviewed Zepbound as a potential treatment option, and I explained that its approval would depend on insurance coverage, which we will attempt to secure by submitting a prior authorization with supporting diagnoses of obstructive sleep apnea, COPD, and prediabetes. I outlined the common side effects, including gastrointestinal issues like nausea, vomiting, constipation, or diarrhea, as well as decreased appetite. I emphasized the importance of combining the medication with lifestyle changes, including dietary adjustments like smaller portions and increased physical activity. We also reviewed recent cardiac test results, including the echo and Holter monitor, and I reassured the patient that the findings of supraventricular ectopy and a slightly dilated aorta do not require immediate action but will be monitored. I strongly encouraged the patient to improve adherence to the CPAP machine for sleep apnea. I instructed the patient to complete lab work today to provide the most current data for the prior authorization. A follow-up visit is scheduled in three months, but the patient was advised to contact us sooner if any issues arise. Patient Instructions - Go to the lab today to get your blood drawn for the ordered tests. - We will request approval from your ins urance for a weight loss medication called Zepbound. - If Zepbound is approved, it is a once- weekly injection. - Be aware of possible side effects like stomach upset (nausea, vomiting, constipation, diarrhea) and a decrease in appetite. - If you have severe symptoms, go to the emergency department. - Focus on a healthy diet with smaller p ortions, more protein, fruits, and vegetables, and less sugar and processed foods. - Try to increase your physical activity , starting slowly with activities like walking. - It is very important to use your CPAP machine for at least 4 hours every night for your sleep apnea. - Only use your rescue inhaler (albutero l) if you are actively feeling short of breath or wheezing. - Schedule a follow-up appointment in out three months. - If you have any problems with the [facility] cation or other concerns, send a message through the patient portal instead of waiting for your next appointment. [facility] Medical History (Updated 02/12/25 @ 15:55 by SUNDEEP Carrillo) Severe obstructive sleep apnea COPD (chronic obstructive pulmonary disease) TAPAN (obstructive sleep apnea) Obesity (BMI 30-39.9) PAC (premature atrial contraction) Personal history of nicotine dependence Prediabetes Hypertension GERD (gastroesophageal reflux disease) Hypothyroidism Anxiety Mild acid reflux Depression External hemorrhoids with complication Other affections of shoulder region, not elsewhere classified Surgical History History of colonoscopy (~07/06/11) History of surgery Family History Father Skin cancer Heart problem Mother Heart problem Social History Housing: House Alcohol intake: current Alcohol intake frequency: holidays/special occasions only Patient Tobacco Use Status: Former Tobacco user e-Cigarette/Vaping Use: Former Use service: No 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 How many drinks containing alcohol do you have on a typical day when you are drinking?: 1 or 2 3. How often do you have six or more drinks on one occasion?: Never Total Score: 0 SAYRA-7 AMB Questionnaire SAYRA-7 Date SAYRA - 7 assessed: 07/24/24 Source: Developed by Drs. Karel Pruitt, Imelda Morales, Melo Pabon and colleagues, with an educational swapna from [employer]. Physical exam (Primary Care) Vital Signs: Last Vital Signs Temp 98.1 F 02/12/25 13:17 Pulse 103 H 02/12/25 13:17 Resp 18 02/12/25 13:17 BP 124/62 02/12/25 13:17 Pulse Ox 94 02/12/25 13:17 Oxygen Delivery Method Room Air 02/12/25 13:17 BMI result Body Mass Index 36.6 Tobacco/Smoking Status: Tobacco use Status Tobacco use date assessed 07/24/24 02/12/25 13:15 Patient Tobacco Use Status Former Tobacco user 02/12/25 13:15 e-Cigarette/Vaping Use Former Use 02/12/25 13:15 Thrive Assessment: Date of Thrive Assessment Date Thrive assessed 07/24/24 02/12/25 13:15 Coding Level of Care Code Est Pt Level 4 (85842) Complex visit Add On G2211 Diagnoses Hypertension I10 HLD (hyperlipidemia) E78.5 Prediabetes R73.03 Hypothyroidism E03.9 Class II obesity E66.812 Adenocarcinoma of prostate C61 COPD (chronic obstructive pulmonary disease) J44.9 Severe obstructive sleep apnea G47.33 Assessment & Plan Assessment & Plan (1) Hypertension: Code(s): I10 - Essential (primary) hypertension Category: Medical Plan: Controlled. Continue losartan 50 mg daily (2) HLD (hyperlipidemia): Code(s): E78.5 - Hyperlipidemia, unspecified Category: Medical Plan: Last LDL uncontrolled. Updated lipid panel ordered. ASCVD risk score to be calculated pending results of study. Recommend diet lower in saturated fats and highly processed foods (3) Prediabetes: Code(s): R73.03 - Prediabetes Category: Medical Plan: A1c ordered. Counseled on diet lower in refined sugars, simple carbohydrates, highly processed foods. Weight loss efforts recommended (4) Hypothyroidism: Code(s): E03.9 - Hypothyroidism, unspecified Category: Medical Plan: TSH ordered. Continue levothyroxine (5) Class II obesity: Code(s): E66.812 - Obesity, class 2 Category: Medical Plan: Recommend diet lower in calories with increased protein, fruits, vegetables and limiting refined sugars, simple carbohydrates, highly processed foods. Recommend release 150 minutes of moderate intensity exercise weekly. Zepbound prescribed given obesity with comorbidities including severe TAPAN, prediabetes, COPD/hypoventilation syndrome, hypertension (6) Adenocarcinoma of prostate: Code(s): C61 - Malignant neoplasm of prostate Category: Medical Plan: Reviewed pathology and last note from Urology. Surveillance at this time. Follow-up for MRI and repeat PSA in 6 months (7) COPD (chronic obstructive pulmonary disease): Comment: HE HAS PAST HISTORY OF SMOKING AND DOES HAVE SYMPTOMS OF MILD INTERMITTENT COUGH WITH SHORTNESS OF BREATH ON WALKING UP HILL. HE IS BEING TREATED WITH ADVAIR 100-51 INHALATION B.I.D. AND ALBUTEROL 2 PUFFS Q 6 HOURS P.R.N.. AT THIS TIME THE COPD IS UNDER GOOD CONTROL AND IS LUNGS ARE VERY CLEAR. Code(s): J44.9 - Chronic obstructive pulmonary disease, unspecified Category: Medical Plan: Stable. Continue maintenance inhalers and albuterol PRN (8) Severe obstructive sleep apnea: Code(s): G47.33 - Obstructive sleep apnea (adult) (pediatric) Category: Medical Plan: Strongly encouraged compliance with CPAP. Continue following with pulmonology Plan Follow-up in the office in 3 months. Labs to be completed today Orders: Orders LDL Cholesterol Direct Today E78.5 - Hyperlipidemia, unspecified Medications: New tirzepatide (weight loss) (Zepbound) for 4 weeks 2.5 mg (0.5 mL) subcut QWEEK 2 mL 0RF E66.2 - Morbid (severe) obesity with alveolar hypoventilation, E66.812 - Obesity, class 2, G47.33 - Obstructive sleep apnea (adult) (pediatric), J44.9 - Chronic obstructive pulmonary disease, unspecified, R73.03 - Prediabetes
[2025-02-12 13:17] VITALS: BP 124/62; PULSE 103; RESP 18; TEMP 36.7; O2SAT 94; BMI 36.6
--- OUTSIDE RECORDS SUMMARY | 2025-02-12 16:43 | XMS_ITS | Clinical Summary ---
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 4 Active meloxicam (Mobic) 15 MG tablet TAKE 1 TABLET BY MOUTH EVERY DAY WITH FOOD 4 Active levothyroxine (Synthroid, Levoxyl) 25 MCG tablet Take 25 mcg by mouth Once per day. 4 Active Sod Fluoride-Potassi um Nitrate 1.1-5 % pasteIndications :Dental caries [place] teeth for 2 minutes, morning and night. [...]
--- OUTSIDE RECORDS SUMMARY | 2025-02-12 16:43 | XMS_ITS | Clinical Summary ---
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 [...] Payer (Ef fective 2022-Present) Name:Jonathan Mihir Member ID:[id number] Relation to Subscriber:Self Name:Josias Castillone Subscriber ID:[id number] Payer ID:[id number] Group ID:Not on file Type:Medicare Address: [facility] [employer] [facility].[address] [address] Care Teams Overnight Houseperson Relationship Specialty Start Date End Date Nura Gallagher MD [address] [place] [address] [place] [address] PCP - General 03/18/17 Additional Source Comments The information contained in this document represents components of the legal health record. It is not the complete legal health record.[facility]
== END 2025-02-12 13:56 | disposition home or self-care (01) ==
LOC: HO.HMCHD 13:03
PROVIDERS: PCP Internal Medicine; Visit Provider Physician Assistant
DX: I10 Essential (primary) hypertension (principal); E78.5 Hyperlipidemia, unspecified; R73.03 Prediabetes; E03.9 Hypothyroidism, unspecified; E66.812 Obesity, class 2; C61 Malignant neoplasm of prostate; J44.9 Chronic obstructive pulmonary disease, unspecified; G47.33 Obstructive sleep apnea (adult) (pediatric)